=== PATIENT | female | born 1965 | race Caucasian/White ===

== ENCOUNTER 2017-11-15 17:42 | Emergency (ER) | payer OTHER ==
[2017-11-15] MEDS ORDERED: NALOXONE HCL INJ 2 MG/2 ML DISP.SYRIN ONE (17:59)
[2017-11-15 18:14] LABS: ABSOLUTE BASOPHILS # (AUTO) 0.1 10^3/uL (0.0-0.2); ABSOLUTE EOSINOPHILS # (AUTO) 0.1 10^3/uL (0.0-0.6); ABSOLUTE LYMPHOCYTES (AUTO) 1.9 10^3/uL (0.5-4.7); ABSOLUTE MONOCYTES (AUTO) 0.5 10^3/uL (0.1-1.4); ABSOLUTE NEUT (AUTO) 6.7 10^3/uL (1.7-8.2); BASOPHILS % (AUTO) 1.1 % (0-2); EOSINOPHILS % (AUTO) 1.1 % (0-6); HEMATOCRIT 40.4 % (36.0-47.0); HEMOGLOBIN 13.8 g/dL (12.0-15.5); LYMPHOCYTES % (AUTO) 20.1 % (13-45); MEAN CORPUSCULAR HEMOGLOBIN 30.6 pg (27.0-33.4); MEAN CORPUSCULAR HGB CONC 34.2 g/dL (32.0-36.0); MEAN CORPUSCULAR VOLUME 89 fl (80-97); MONOCYTES % (AUTO) 5.3 % (3-13); PLATELET COUNT 335 10^3/uL (150-450); RED BLOOD COUNT 4.52 10^6/uL (3.72-5.28); RED CELL DISTRIBUTION WIDTH 13.4 % (11.5-14.0); SEGMENTED NEUTROPHILS % (AUTO) 72.4 % (42-78); TOTAL CELLS COUNTED % (AUTO) 100 %; WHITE BLOOD COUNT 9.3 10^3/uL (4.0-10.5)
[2017-11-15 18:27] LABS: ALANINE AMINOTRANSFERASE 28 U/L (9-52); ALBUMIN 4.1 g/dL (3.5-5.0); ALKALINE PHOSPHATASE 92 U/L (38-126); ANION GAP 14 (5-19); ASPARTATE AMINO TRANSFERASE 20 U/L (14-36); BILIRUBIN,DIRECT 0.3 mg/dL (0.0-0.4); BILIRUBIN,TOTAL 0.3 mg/dL (0.2-1.3); BLOOD UREA NITROGEN 13 mg/dL (7-20); CALCIUM 9.6 mg/dL (8.4-10.2); CARBON DIOXIDE 24 mmol/L (22-30); CHLORIDE 106 mmol/L (98-107); GLUCOSE 100 mg/dL (75-110); POTASSIUM 3.8 mmol/L (3.6-5.0); SODIUM 143.5 mmol/L (137-145); TOTAL PROTEIN 7.3 g/dL (6.3-8.2)
[2017-11-15 18:38] LABS: ACETAMINOPHEN < 10 ug/mL (10-30); ALCOHOL < 10 mg/dL (NONE DETECTED); SALICYLATE < 1.0 mg/dL (2.0-20.0)
--- NOTE | 2017-11-15 18:42 | ER Document Report ---
ED General <GAMBLE,BRIAN - Last Filed: 11/16/17 01:09> - General Mode of Arrival: Ambulatory Information source: Relative - HPI Onset: Just prior to arrival Similar symptoms previously: No Recently seen / treated by doctor: No <DENNIS HUSSEIN - Last Filed: 11/16/17 01:17> - General Chief Complaint: Possible Overdose Stated Complaint: CONFUSION,WEAKNESS Time Seen by Provider: 11/15/17 17:53 Notes: 52-year-old female with reported history of hypertension, depression presents via private vehicle from home after her found her altered, slurring her speech and stumbling around the house. He reports that the patient has had increased stress with a mother who is ill. He does admit that they had an argument earlier today. He reports an empty bottle of Xanax but is unsure how many pills the patient initially had. He denies known history of previous suicide attempt. He does report a history of admission at [facility]. (DENNIS HUSSEIN) Past Medical History - General Information source: Relative Cannot obtain history due to: Altered mental status - Social History Smoking Status: Unknown if Ever Smoked Frequency of alcohol use: Occasional Drug Abuse: Prescription drugs Lives with: Spouse/Significant other Family History: Reviewed & Not Pertinent - Past Medical History Cardiac Medical History: Reports: Hx Hypertension Psychiatric Medical History: Reports: Hx Depression <HUSSEINDENNIS - Last Filed: 11/16/17 01:17> Review of Systems - Review of Systems -: Yes ROS unobtainable due to patient's medical condition <KEENANDENNIS Weaver - Last Filed: 11/16/17 01:17> Physical Exam <GAMBLEBHAVNATANGELA - Last Filed: 11/16/17 01:09> - Vital signs Interpretation: Normal. No: Hypertensive <DENNIS HUSSEIN - Last Filed: 11/16/17 01:17> - Vital signs Vitals: Pulse Ox 97 11/15/17 17:48 - Notes Notes: PHYSICAL EXAMINATION: GENERAL: Somnolent but arousable, well-nourished and in no acute distress. HEAD: Atraumatic, normocephalic. EYES: Pupils equal round and reactive to light, extraocular movements intact, conjunctiva are normal. ENT: Patient with good gag reflex. Nares patent, oropharynx clear without exudates. Moist mucous membranes. NECK: Normal range of motion, supple without lymphadenopathy LUNGS: Breath sounds clear to auscultation bilaterally and equal. No wheezes rales or rhonchi. HEART: Regular rate and rhythm without murmurs ABDOMEN: Soft, nontender, nondistended abdomen. No guarding, no rebound. No masses appreciated. Female : deferred Musculoskeletal: Normal range of motion, no pitting or edema. No cyanosis. NEUROLOGICAL: good tone, responds to name and stimuli. GCS 10. PSYCH: Somnolent but arousable with painful stimuli. SKIN: Warm, Dry, normal turgor, no rashes or lesions noted. (DENNIS HUSSEIN) Course - Laboratory Result Diagrams: 11/15/17 18:00 11/15/17 18:00 <TANGELA GAMBLE - Last Filed: 11/16/17 01:09> - Laboratory Result Diagrams: 11/15/17 18:00 11/15/17 18:00 <DENNIS HUSSEIN - Last Filed: 11/16/17 01:17> - Re-evaluation Re-evalutation: 11/15/17 18:45 52-year-old female presents from home altered. Per the patient was found slurring her words, stumbling around the house just prior to arrival. He denies the patient falling. He states he found her Xanax bottle empty. He is unsure when the prescription was filled or how many were in their earlier. He does admit that they argued earlier today and the patient has been experiencing increased stress with an ill mother. He denies any known history of previous suicide attempt. He does state that the patient has had previous psychiatric admission at [facility] for depression. Upon arrival patient is somnolent, arousable with verbal and tactile stimuli. Gag reflex intact. She is checking her airway, not hypoxic and has a normal respiratory rate. 2 mg of Narcan IV was administered with no response. IV fluids administered. IVC petition initiated. Poison control contacted and have no further recommendations except for IV fluids and monitoring. 11/15/17 19:51 Patient reevaluated she remains somnolent but arousable. VSS 11/15/17 21:11 Patient reevaluated and remains sleeping but arousable. Vital signs stable. has not returned with medication information. 11/15/17 21:12 11/15/17 21:46 Urinalysis positive for amphetamines and benzodiazepine. 11/16/17 01:14 Still unclear whether this was an intentional OD. Patient's never returned to ED. Patient will be medically cleared once she is able to provide history and is alert and awake. Patient to remain on monitor until improvement. Patient signed out to Dr Gamble with nothing pending just the need for continuous observation. (DENNIS HUSSEIN) - Vital Signs Vital signs: Temp Pulse Resp BP Pulse Ox 98.5 F 18 111/83 100 11/15/17 17:50 11/16/17 00:31 11/16/17 00:31 11/16/17 00:31 - Laboratory Laboratory results interpreted by me: 11/15/17 18:00 Est GFR ( Amer) 55 L Est GFR (Non-Af Amer) 46 L Salicylates < 1.0 L Acetaminophen < 10 L - EKG Interpretation by Me Additional EKG results interpreted by me: 11/16/17 01:09 EKG is reviewed and interpreted by me. EKG shows sinus rhythm with rate [address] segment elevation or depression. HI interval is prolonged. QRS duration QTc intervals are within normal range. (TANGELA GAMBLE) Discharge <TANGELA GAMBLE - Last Filed: 11/16/17 01:09> <DENNIS HUSSEIN - Last Filed: 11/16/17 01:17> - Discharge Clinical Impression: History of depression Altered mental status Qualifiers: Altered mental status type: somnolence Qualified Code(s): R40.0 - Somnolence Overdose Qualifiers: Encounter type: initial encounter Injury intent: undetermined intent Qualified Code(s): T50.904A - Poisoning by unspecified drugs, medicaments and biological substances, undetermined, initial encounter Condition: Fair Referrals: SOL MEHTA MD [Primary Care Provider] - Follow up as needed
[2017-11-15] MEDS ORDERED: NALOXONE HCL INJ 2 MG/2 ML DISP.SYRIN IV ONE (18:44)
[2017-11-15 20:39] LABS: APPEARANCE,URINE CLEAR; BILIRUBIN,URINE NEGATIVE (NEGATIVE); COLOR,URINE YELLOW; GLUCOSE, URINE NEGATIVE (NEGATIVE); KETONES,URINE NEGATIVE (NEGATIVE); LEUKOCYTE ESTERASE,URINE NEGATIVE (NEGATIVE); NITRITE,URINE NEGATIVE (NEGATIVE); PROTEIN,URINE NEGATIVE (NEGATIVE); URINE SPECIFIC GRAVITY 1.009; UROBILINOGEN,URINE NEGATIVE mg/dL (<2.0)
[2017-11-15 20:53] LABS: URINE AMPHETAMINES SCREEN UNCONFIRMED POSITIVE; URINE BARBITURATES SCREEN NEGATIVE; URINE BENZODIAZEPINES SCREEN UNCONFIRMED POSITIVE; URINE COCAINE SCREEN NEGATIVE; URINE MARIJUANA (THC) SCREEN NEGATIVE; URINE METHADONE SCREEN NEGATIVE; URINE PHENCYCLIDINE SCREEN NEGATIVE
--- NOTE | 2017-11-15 22:32 | EKG REPORT ---
SEVERITY:- BORDERLINE ECG - SINUS RHYTHM LEFT AXIS DEVIATION BORDERLINE R WAVE PROGRESSION, ANTERIOR LEADS BORDERLINE T ABNORMALITIES, ANT-LAT LEADS : Confirmed by: Beronica Julien 15-Nov-2017 22:31:26
[2017-11-15] MEDS ORDERED: NORMAL SALINE INJ/PF 0.9% 10 ML SDV IV ONE (23:06)
--- NOTE | 2017-11-16 07:38 | EKG REPORT ---
SEVERITY:- ABNORMAL ECG - SINUS RHYTHM FIRST DEGREE AV BLOCK LEFT AXIS DEVIATION BORDERLINE T ABNORMALITIES, DIFFUSE LEADS : Confirmed by: Mumtaz Arambula MD 16-Nov-2017 07:37:19
--- NOTE | 2017-11-16 10:11 | ER Document Report ---
Doctor's Note Notes: 11/16/17 10:10 This is a 52-year-old female with a history of depression with prior inpatient psychiatric care who was brought into the emergency room by her after she was found altered at home in the setting of possible overdose with benzodiazepines. Patient's vital signs have been stable. Patient's labs have been stable. On physical exam, the patient is still quite lethargic but arousable. Her lungs are clear and her heart is regular. She appears to have no focal weakness (she is moving all extremities). To me, she does still appear to have slurred speech. The patient is accompanied by her who is in the room and he says his speech is much better. By the 's accounts, he did find an old (from 2011) bottle of Xanax which was empty and out on the table (where it had not been previously out) when he had come home. He stated that the patient was slurring her speech at that time and that is when he brought her into the emergency room. I contacted [facility] and they have confirmed that the patient's medicines include Adderall 20, Abilify 5, Wellbutrin XL 300, and Prozac 20. The patient's tox screen was positive for benzodiazepines and amphetamines which is consistent with Xanax exposure as well as being on Adderall. At this point, we will continue to monitor. 11/16/17 10:24 11/16/17 19:18 Note: I discussed the case with the psychiatric team and we will continue to observe the patient for reevaluation tomorrow.
--- NOTE | 2017-11-16 13:12 | PSYCHOLOGICAL NOTE ---
Psych Note - Psych Note Psych Note: Reason for evaluation: Alleged overdose on Xanax Contact Permissions: Patient's Buck Martin cell phone [phone]; [phone] Patient is a 52-year-old female. Patient reports she intentionally took the bottle of Xanax. Patient reports she is matriarch of her family. Patient reports her dad 3 years ago. Patient reports her mother is sick right now and her sister cannot help because her sister had a stroke several years ago. Patient reports she was angry at her because he just stares out the window when there is problems and is not understanding what she is going through. Patient reports she sees Dr. Rosales and also a new therapist at [facility] and is getting treatment for posttraumatic stress disorder and anxiety. Patient reports she wants to go somewhere for a month to "get her mind right". Patient reports she took the Xanax but does not remember how many because there was a 60 day supply and she had been taking them whenever she had anxiety as needed. Patient reports she has 1 biological daughter with him and another daughter that he raised. Patient reports that she felt her family did not need her anymore. Patient reports she does a lot for people. Patient reports that her and her have been for 24 years. Collateral information: Patient's Buck Martin ( present in room) Patient's reports patient came downstairs and had slurred speech, so he went upstairs and found an empty bottle of Xanax on the bathroom countertop. Patient's reports patient has history of depression and was in a psychiatric inpatient facility 3 or 4 years ago for the depression. To the patient's knowledge patient has never attempted suicide and does not use Xanax recreationally. Patient's reports they have been for 24 years and patient disclosed to him that she "does not want to ". Patient' s reports patient has history of high blood pressure with history of confusion while experiencing high blood pressure. Patient's reports he believes she was not trying to intentionally hurt herself. Patient's reports they came to the emergency department yesterday at 630. Patient's reports he has a good social support system to her and is able to administer meds. Diagnosis: Per patient report 309.81 (F43.10) posttraumatic stress disorder Per patient report 300.00 (F41.9) anxiety disorder unspecified Impression/Plan: Recommendation to hold patient for 24 hours or until medically cleared and able to be reassessed. Clinician observed patient's speech is slurred, she takes long pauses due to the influence of the medications she took. Clinician observed at this time there is not enough information, mental health to reassess at a later time once patient is medically cleared. Attending physician in agreement with disposition and plan. Consulted with Dr. Argueta regarding the management and care of patient.
[2017-11-16] MEDS ORDERED: ACETAMINOPHEN 325 MG TABLET PO ONE (16:49)
--- NOTE | 2017-11-16 19:53 | RADIOLOGY REPORT (SQ) ---
EXAM DESCRIPTION: CT HEAD WITHOUT COMPLETED DATE/TIME: 11/16/2017 7:11 pm REASON FOR STUDY: lethargic COMPARISON: None. TECHNIQUE: Axial images acquired through the brain without intravenous contrast. Images reviewed wi th bone, brain and subdural windows. Additional sagittal and coronal reconstructions were generated. Images stored on PACS. All CT scanners at this facility use dose modulation, iterative reconstruction, and/or weight based d osing when appropriate to reduce radiation dose to as low as reasonably achievable (ALARA). [facility]: Dose Right [facility]: CareDose [facility]: Dose Right [facility]: Teradose 4D [facility]: Smart [employer] RADIATION DOSE: CT Rad equipment meets quality standard of care and radiation dose reduction techniq ues were employed. CTDIvol: 53.2 mGy. DLP: 1097 mGy-cm. mGy. LIMITATIONS: None. FINDINGS: VENTRICLES: Normal size and contour. CEREBRUM: No masses. No hemorrhage. No midline shift. No evidence for acute infarction. Normal gra y/white matter differentiation. No areas of low density in the white matter. CEREBELLUM: No masses. No hemorrhage. No alteration of density. No evidence for acute infarction. EXTRAAXIAL SPACES: No fluid collections. No masses. ORBITS AND GLOBE: No intra- or extraconal masses. Normal contour of globe without masses. CALVARIUM: No fracture. PARANASAL SINUSES: No fluid or mucosal thickening. SOFT TISSUES: No mass or hematoma. OTHER: No other significant finding. IMPRESSION: NORMAL BRAIN CT WITHOUT CONTRAST. EVIDENCE OF ACUTE STROKE: NO. COMMENT: Quality ID # [id number]: Final reports with documentation of one or more dose reduction techniques (e.g., Automated exposure control, adjustment of the mA and/or kV according to patient size, use of iterative reconstruction technique) TECHNICAL DOCUMENTATION: JOB ID: [id number] 1894[employer]- All Rights Reserved Reading location - IP/workstation name: [email or web address]
--- NOTE | 2017-11-17 08:47 | PSYCHOLOGICAL NOTE ---
Psych Note - Psych Note Psych Note: Reason for consult: Re-eval Alleged Overdose Contact Permissions: Patient's Buck Martin cell phone [phone]; [phone] Patient is a 52-year-old female. Patient reports she does not remember talking to me yesterday and telling me that she took the Xanax intentionally. Patient reports just before taking the Xanax she was standing in the doorway listening to her talk to his friend in the garage about his affair that he had with another woman. Patient reports the friend was also having an affair with another woman and both her and the friend were talking about their women and affairs as if it were funny, as if they did not care about how their wives would feel about it. Patient reports she then confronted him and stood in the garage telling him to continue talking about the affair and also confronted the friend. Patient reports her then became angry because she spoke to him that way in front of their friend who she has known for as long as she is known her (over 23 years). Patient reports her stated she had talked to him like a dog and went in the home and started breaking picture frames and throwing pictures of patients father whom and mother who is currently dying. Patient reports her said he did not want [employer] pictures in the home because she states she is white and her is black. Patient reports that her does not have a good relationship with his own family so he is not considerate of her relationship with her parents. Patient reports that her family were not accepting the interracial marriage, so there is some truth to the client member statement he made. Patient reports however in that situation he "flipped the script" and turned the conversation about his affair into a conversation about how her family were racist. Patient reports she has a lot of things that she is overwhelmed because her mother is dying, her daughter is addicted to heroin which she just found out about, and her was having an affair that they were trying to work to up until him talking about it like it was funny to his friend just before she took the bottle of Xanax. Patient reports she intentionally took the entire bottle of Xanax but is unsure how many pills were in their. Patient reports her likes to believe he is supportive but he is not. Patient reports her probably thinks it is all about him or would like to think it is about him but it is not just about him there are a lot of things going on. Clinician updated patient on treatment plan, when updating patient she stated she took 40,60,70 pills. Patient stated when she discharges she wants to be discharged to the care of her daughter Mirna. Patient reported her daughter is graduating on Mother's Day and she does not want to miss it. Patient reported her mother is stressful, so she would not be a good person to have in the home, she lives nearby. Patient reports her also stresses her so he will leave the home until she has had time to follow up with her provider/outpatient therapist. Collateral information: Patient's Buck Patient's reports he will leave the home when patient discharges tomorrow. Patient's reports their daughter Mirna will be the supportive person to discharge too who will monitor patient. Patient's reports he will throw away all medication, and safety plan in the home, to include removing access to medications/ anything dangerous in the home until patient receives additional assessment with her outpatient therapist provider. Patient's reports he is relieved the patient is not being sent to a psych hospital because he was worried about his missing their daughter's graduation on mother's day. Diagnosis: Per patient report 309.81 (F43.10) posttraumatic stress disorder Per patient report 300.00 (F41.9) anxiety disorder unspecified Medication recommendation made by contracted [facility] provider Dr. Martha MD includes: 1. Please begin Celexa 20 mg daily 2. Please begin BuSpar 5 mg twice a day 3.Please discontinue home meds Impression/Plan: Recommendation to hold patient overnight for continued observation. A medication recommendation was made by contracted psychiatric provider. Clinician observed patient is still having difficulty regarding speech , aeb paucity and speech slightly slurred, however she is able to recall the events leading up to her overdose of Xanax ( a benzodiazepine). Clinician observed patient disclosed intentionally overdosing, but will redirect the conversation when asked more information regarding taking the Xanax.Clinician observed patient is experiencing environmental stresses to include marital conflicts, familial stresses, and currently grieving as her mother is at risk of dying ( 90% heart blockage, not able to get surgery). Clinician observed patient displays future oriented thinking by planning on attending her daughter' s graduation, as well as spending time with her, and distancing herself from stresses ( e.g. mother and ). Attending physician in agreement with plan and disposition. Consulted with Dr. Argueta regarding the management and care of patient.
--- NOTE | 2017-11-17 10:13 | ER Document Report ---
Doctor's Note Notes: The patient had overdose of home medications. Apparently there are some home dynamics exacerbating her mental health status. We will start her on Celexa and BuSpar at this time. Mental health would like to hold her for an additional 24 hours. Patient is awake and alert at this time. Ate breakfast. Ambulate to the bathroom without difficulty. Vital signs have been reviewed and within normal limits at this time. is at the bedside. Course - Re-evaluation Re-evalutation: 11/17/17 10:23 Laboratory 11/15/17 11/15/17 11/15/17 18:00 18:00 18:01 WBC 9.3 RBC 4.52 Hgb 13.8 Hct 40.4 MCV 89 MCH 30.6 MCHC 34.2 RDW 13.4 Plt Count 335 Seg Neutrophils % 72.4 Lymphocytes % 20.1 Monocytes % 5.3 Eosinophils % 1.1 Basophils % 1.1 Absolute Neutrophils 6.7 Absolute Lymphocytes 1.9 Absolute Monocytes 0.5 Absolute Eosinophils 0.1 Absolute Basophils 0.1 Sodium 143.5 Potassium 3.8 Chloride 106 Carbon Dioxide 24 Anion Gap 14 BUN 13 Creatinine 1.24 Est GFR ( Amer) 55 L Est GFR (Non-Af Amer) 46 L Glucose 100 POC Glucose 89 Calcium 9.6 Total Bilirubin 0.3 Direct Bilirubin 0.3 Neonat Total Bilirubin Not Reportable Neonat Direct Bilirubin Not Reportable Neonat Indirect Bili Not Reportable AST 20 ALT 28 Alkaline Phosphatase 92 Total Protein 7.3 Albumin 4.1 Urine Color Urine Appearance Urine pH Ur Specific [place] Urine Protein Urine Glucose (UA) Urine Ketones Urine Blood Urine Nitrite Urine Bilirubin Urine Urobilinogen Ur Leukocyte Esterase Urine WBC (Auto) Urine RBC (Auto) U Hyaline Cast (Auto) Squamous Epi Cells Auto Urine Mucus (Auto) Urine Ascorbic Acid Salicylates < 1.0 L Urine Opiates Screen Urine Methadone Screen Acetaminophen < 10 L Ur Barbiturates Screen Ur Phencyclidine Scrn Ur Amphetamines Screen U Benzodiazepines Scrn Urine Cocaine Screen U Marijuana (THC) Screen Serum Alcohol < 10 11/15/17 11/15/17 11/16/17 20:26 20:26 01:04 WBC RBC Hgb Hct MCV MCH MCHC RDW Plt Count Seg Neutrophils % Lymphocytes % Monocytes % Eosinophils % Basophils % Absolute Neutrophils Absolute Lymphocytes Absolute Monocytes Absolute Eosinophils Absolute Basophils Sodium Potassium Chloride Carbon Dioxide Anion Gap BUN Creatinine Est GFR ( Amer) Est GFR (Non-Af Amer) Glucose POC Glucose Calcium Total Bilirubin Direct Bilirubin Neonat Total Bilirubin Neonat Direct Bilirubin Neonat Indirect Bili AST ALT Alkaline Phosphatase Total Protein Albumin Urine Color YELLOW Urine Appearance CLEAR Urine pH 5.0 Ur Specific [place] 1.009 Urine Protein NEGATIVE Urine Glucose (UA) NEGATIVE Urine Ketones NEGATIVE Urine Blood NEGATIVE Urine Nitrite NEGATIVE Urine Bilirubin NEGATIVE Urine Urobilinogen NEGATIVE Ur Leukocyte Esterase NEGATIVE Urine WBC (Auto) 0 Urine RBC (Auto) 0 U Hyaline Cast (Auto) 1 Squamous Epi Cells Auto <1 Urine Mucus (Auto) RARE Urine Ascorbic Acid NEGATIVE Salicylates Urine Opiates Screen NEGATIVE Urine Methadone Screen NEGATIVE Acetaminophen < 10 L Ur Barbiturates Screen NEGATIVE Ur Phencyclidine Scrn NEGATIVE Ur Amphetamines Screen UNCONFIRMED POSITIVE U Benzodiazepines Scrn UNCONFIRMED POSITIVE Urine Cocaine Screen NEGATIVE U Marijuana (THC) Screen NEGATIVE Serum Alcohol Head CT 11/16/17 18:12 IMPRESSION: NORMAL BRAIN CT WITHOUT CONTRAST. EVIDENCE OF ACUTE STROKE: NO. - Vital Signs Vital signs: Temp Pulse Resp BP Pulse Ox 98.0 F 17 112/75 98 11/17/17 06:10 11/17/17 07:00 11/17/17 07:01 11/17/17 07:01 - Laboratory Result Diagrams: 11/15/17 18:00 11/15/17 18:00 Laboratory results interpreted by me: 11/15/17 11/16/17 18:00 01:04 Est GFR ( Amer) 55 L Est GFR (Non-Af Amer) 46 L Salicylates < 1.0 L Acetaminophen < 10 L < 10 L
[2017-11-17] MEDS ORDERED: BUSPIRONE HCL 10 MG TABLET PO SCH (11:00)
[2017-11-17] MEDS ORDERED: CITALOPRAM HYDROBROMIDE 20 MG TABLET PO SCH (11:00)
--- NOTE | 2017-11-18 09:05 | ER Document Report ---
Doctor's Note Notes: 11/18/17 09:05 I have evaluated this patient this am and has no c/o at this time. Feels all of their needs are being met and physical exam is normal. Awaiting dispositon per mental health. She denies SI or HI. 11/18/17 12:00 Mental Health evaluated patient and is recommending discharge with outpatient follow-up. They are recommending Celexa 20 mg daily and BuSpar 5 mg twice daily. Seven-day prescription was provided until she is able to follow-up at counseling tomorrow at 1500. He will also follow-up at [facility].
[2017-11-18] MEDS ORDERED: BUSPIRONE HCL 10 MG TABLET PO SCH (10:00)
[2017-11-18] MEDS ORDERED: CITALOPRAM HYDROBROMIDE 20 MG TABLET PO SCH (10:00)
[2017-11-18 12:17] VITALS: BP 126/80
--- NOTE | 2017-11-18 18:16 | PSYCHOLOGICAL NOTE ---
Psych Note - Psych Note Psych Note: Reason for referral: 2nd Re-Evaluation, Intentional overdose Contact Permission: Buck Martin cell phone [phone] or alternative [phone] Daughter Mirna [phone] Patient is a 52 year old female who presented to the [facility] ED on the evening of for an intentional OD of Xanax. She has had an initial consult by the [facility] team and today makes the second re-evaluation. She denied any thoughts of wanting to hurt/harm/kill self currently. She continued to have future oriented thinking as evidenced by wanting to attend her daughter's college graduation this coming Thursday with patient's mother. She stated her daughter is in [place] until after Thursday's graduation. She confirmed that she felt her was disrespectful to her the other day which sent her off, however she had already been stressed with her mother's declining health and her other daughter's drug addiction. She reported "my is a trigger but it has been better the past year because I put boundaries in place and expectations." She described herself as "up front and outspoken." She further commented that she "typically does not get angry because that gets you nowhere. " She stated "I don't want to cry," proceeded to identify her stressors and did get tearful (appropriate). She stated she thinks her second therapy appointment at [facility] is 12/08/2017. She acknowledged frustration with trying to get therapy at [facility] and was open to getting an appointment for therapy elsewhere. She reported she was not sure when her next medication management appointment was. Patient was alert and oriented to person, place, time and situation. Mood was depressed with congruent affect AEB tearful though at appropriate time. Note the depressed mood may still be lethargy from Xanax OD. She did not appear to be responding to internal stimuli as evidenced by good eye contact, answering questions appropriately when addressed, staying on topic and having dialogue conversation. Thought processes seemed slower in nature but linear and organized. Conversational speech was soft in tone and within normal limits for rate and prosody. Intellectual abilities are estimated to be average. Insight, judgment and impulse control are fair as evidenced by interest in wanting therapy regularly. Diagnosis: 309.81 (F43.10) Posttraumatic Stress Disorder by history per patient report 300.00 (F41.9) Unspecified Anxiety Disorder by history per patient report Impression/Plan: Patient is psychiatrically cleared (acutely). Patient had only been on 24 hour Petition/Affidavit from 11/15/17 which had already . She denied current SI. She had future oriented thinking (not wanting to miss daughter's college graduation 11/22/17). She mentioned difficulty with therapy at [facility] and wanted other referral. Made a therapy appointment at [facility] for tomorrow (11/19/17) at 1500. Encouraged patient to follow up with [facility] for medication management within 3-5 days and mentioned as an active client she can do a walk in. to have control over new medications and administration. He confirmed he removed all old medication from the home. Daughter said she could come home since done with exams and not needing to do graduation stuff until Thursday. confirmed this. Patient provided with outpatient resource sheet which documented appointment dates and times (for [facility] noted to do a walk in myriam), as well as highlighted MCM number. Consulted with Dr. Argueta regarding the management and care of patient. Medication recommendations made by the psychiatric medical provider, Dr. Martha CHAVEZ, include: scripts for medications administered in ED Celexa 20MG daily for depression and anxiety Buspar 5MG twice a day for depression and anxiety
== END 2017-11-18 12:36 | disposition home or self-care (01) ==
LOC: ER 17:42 → EDBD 17:42 → ER 11-18 12:36
DX: T50.904A Poisoning by unspecified drugs, medicaments and biological substances, undetermined, initial encounter (principal); X58.XXXA Exposure to other specified factors, initial encounter; Y92.009 Unspecified place in unspecified non-institutional (private) residence as the place of occurrence of the external cause; R40.0 Somnolence; F43.10 Post-traumatic stress disorder, unspecified; F41.9 Anxiety disorder, unspecified; I10 Essential (primary) hypertension
CPT/HCPCS: 93005 ×2; 99285; 51701; 96374; 36415; 82962; 80307 ×4; 85025; 80053; 81001; 70450; 93010 ×2; J3490; J2310

== ENCOUNTER 2018-02-06 17:24 | Emergency (ER) | payer OTHER ==
[2018-02-06] MEDS ORDERED: ASPIRIN 81 MG TABLET, CHEWABLE PO ONE (18:48)
--- NOTE | 2018-02-06 18:50 | ER Document Report ---
ED Medical Screen (RME) - General Chief Complaint: Chest Pain Stated Complaint: CHEST PAIN, ARM NUMBNESS Time Seen by Provider: 02/06/18 18:47 Mode of Arrival: Ambulatory Information source: Patient Notes: This is a 52-year-old female with a history of hypertension, migraines, GERD, bladder spasms, anxiety. She presents to the emergency room with an episode of chest pain while fishing. [place] the [place] and had rods and pulse and was walking between 2 rods when he started having left-sided chest pain with left arm weakness. Patient states the pain seemed to migrate to the right side of the chest and was squeezing. Patient states it was associated with nausea and diaphoresis. Patient denies shortness of breath. Medications: Lisinopril-hydrochlorothiazide Topamax Wellbutrin Omeprazole Gabapentin "Medicine for bladder spasms". Allergies: None TRAVEL OUTSIDE OF THE [place] IN LAST 30 DAYS: No - Related Data Allergies/Adverse Reactions: No Known Allergies Allergy (Verified 02/06/18 17:24) Past Medical History - Social History Chew tobacco use (# tins/day): No Frequency of alcohol use: None Drug Abuse: None - Past Medical History Cardiac Medical History: Reports: Hx Hypertension Denies: Hx Coronary Artery Disease, Hx Heart Attack Pulmonary Medical History: Denies: Hx Asthma, Hx Bronchitis, Hx COPD, Hx Pneumonia Neurological Medical History: Denies: Hx Cerebrovascular Accident, Hx Seizures Renal/ Medical History: Denies: Hx Peritoneal Dialysis GI Medical History: Reports: Hx Gastroesophageal Reflux Disease Musculoskeltal Medical History: Denies Hx Arthritis Psychiatric Medical History: Reports: Hx Anxiety, Hx Depression Past Surgical History: Reports: Hx Appendectomy, Hx Hysterectomy, Hx Tubal Ligation - Immunizations Immunizations up to date: No Hx Diphtheria, Pertussis, Tetanus Vaccination: Yes Physical Exam - Vital signs Vitals: Temp Pulse Resp BP Pulse Ox 98.2 F 92 24 H 135/90 H 99 02/06/18 17:45 02/06/18 17:45 02/06/18 17:45 02/06/18 17:45 02/06/18 17:45 Course - Vital Signs Vital signs: Temp Pulse Resp BP Pulse Ox 98.2 F 92 24 H 135/90 H 99 02/06/18 17:45 02/06/18 17:45 02/06/18 17:45 02/06/18 17:45 02/06/18 17:45
--- NOTE | 2018-02-06 19:12 | RADIOLOGY REPORT (SQ) ---
EXAM DESCRIPTION: CHEST SINGLE VIEW COMPLETED DATE/TIME: 02/06/2018 7:01 pm REASON FOR STUDY: cp COMPARISON: 02/14/2016 EXAM PARAMETERS: NUMBER OF VIEWS: One view. TECHNIQUE: Single frontal radiographic view of the chest acquired. RADIATION DOSE: NA LIMITATIONS: None. FINDINGS: LUNGS AND PLEURA: No opacities, masses or pneumothorax. No pleural effusion. MEDIASTINUM AND HILAR STRUCTURES: No masses. Contour normal. HEART AND VASCULAR STRUCTURES: Heart normal in size. Normal vasculature. BONES: No acute findings. HARDWARE: None in the chest. OTHER: No other significant finding. IMPRESSION: NO ACUTE RADIOGRAPHIC FINDING IN THE CHEST. TECHNICAL DOCUMENTATION: JOB ID: [id number] [place]-72 2010 [employer]- All Rights Reserved Reading location - IP/workstation name: [employer]
[2018-02-06 19:43] LABS: ALANINE AMINOTRANSFERASE 41 U/L (9-52); ALBUMIN 4.1 g/dL (3.5-5.0); ALKALINE PHOSPHATASE 102 U/L (38-126); ANION GAP 14 (5-19); ASPARTATE AMINO TRANSFERASE 32 U/L (14-36); BILIRUBIN,DIRECT 0.2 mg/dL (0.0-0.4); BILIRUBIN,TOTAL 0.9 mg/dL (0.2-1.3); BLOOD UREA NITROGEN 16 mg/dL (7-20); CARBON DIOXIDE 21 mmol/L (22-30); CHLORIDE 106 mmol/L (98-107); CREATINE KINASE 541 U/L (30-135); GLUCOSE 92 mg/dL (75-110); POTASSIUM 3.4 mmol/L (3.6-5.0); SODIUM 141.1 mmol/L (137-145); TOTAL PROTEIN 7.3 g/dL (6.3-8.2)
[2018-02-06 19:49] LABS: ABSOLUTE BASOPHILS # (AUTO) 0.1 10^3/uL (0.0-0.2); ABSOLUTE EOSINOPHILS # (AUTO) 0.2 10^3/uL (0.0-0.6); ABSOLUTE LYMPHOCYTES (AUTO) 2.2 10^3/uL (0.5-4.7); ABSOLUTE MONOCYTES (AUTO) 0.5 10^3/uL (0.1-1.4); ABSOLUTE NEUT (AUTO) 5.4 10^3/uL (1.7-8.2); BASOPHILS % (AUTO) 0.8 % (0-2); EOSINOPHILS % (AUTO) 1.9 % (0-6); HEMOGLOBIN 13.5 g/dL (12.0-15.5); LYMPHOCYTES % (AUTO) 26.6 % (13-45); MEAN CORPUSCULAR HEMOGLOBIN 30.1 pg (27.0-33.4); MEAN CORPUSCULAR HGB CONC 33.8 g/dL (32.0-36.0); MEAN CORPUSCULAR VOLUME 89 fl (80-97); PLATELET COUNT 287 10^3/uL (150-450); RED BLOOD COUNT 4.48 10^6/uL (3.72-5.28); RED CELL DISTRIBUTION WIDTH 13.6 % (11.5-14.0); SEGMENTED NEUTROPHILS % (AUTO) 64.7 % (42-78); TOTAL CELLS COUNTED % (AUTO) 100 %; WHITE BLOOD COUNT 8.3 10^3/uL (4.0-10.5)
[2018-02-06 19:55] LABS: CREATINE KINASE MB 3.18 ng/mL (<4.55)
[2018-02-06 19:57] LABS: TROPONIN I < 0.012 ng/mL
[2018-02-06] MEDS ORDERED: NORMAL SALINE 1000 ML 1,000 ML IV ONE (21:31)
--- NOTE | 2018-02-06 21:47 | ER Document Report ---
ED Cardiac - General Chief Complaint: Chest Pain Stated Complaint: CHEST PAIN, ARM NUMBNESS Time Seen by Provider: 02/06/18 18:47 Mode of Arrival: Ambulatory Information source: Patient Notes: Patient is a 52-year-old female who presents with chief complaint of chest pain. Patient reports of chest pain started at 4 PM while she was out fishing. Describes the pain as being on the left side of her chest with radiation down the left arm. Patient had associated dizziness and nausea. Denies any shortness of breath or diaphoresis. Patient reports history of hypertension, depression, denies history of any myocardial infarction. Patient is a non- smoker. TRAVEL OUTSIDE OF THE [place] IN LAST 30 DAYS: No - Related Data Allergies/Adverse Reactions: No Known Allergies Allergy (Verified 02/06/18 17:24) Past Medical History - General Information source: Patient - Social History Smoking Status: Current Every Day Smoker Chew tobacco use (# tins/day): No Frequency of alcohol use: None Drug Abuse: None Family History: Reviewed & Not Pertinent Patient has suicidal ideation: No Patient has homicidal ideation: No - Past Medical History Cardiac Medical History: Reports: Hx Hypertension Denies: Hx Coronary Artery Disease, Hx Heart Attack Pulmonary Medical History: Denies: Hx Asthma, Hx Bronchitis, Hx COPD, Hx Pneumonia Neurological Medical History: Denies: Hx Cerebrovascular Accident, Hx Seizures Renal/ Medical History: Denies: Hx Peritoneal Dialysis GI Medical History: Reports: Hx Gastroesophageal Reflux Disease Musculoskeletal Medical History: Denies Hx Arthritis Psychiatric Medical History: Reports: Hx Anxiety, Hx Depression Past Surgical History: Reports: Hx Appendectomy, Hx Hysterectomy, Hx Tubal Ligation - Immunizations Immunizations up to date: No Hx Diphtheria, Pertussis, Tetanus Vaccination: Yes Physical Exam - Vital signs Vitals: Temp Pulse Resp BP Pulse Ox 98.2 F 92 24 H 135/90 H 99 02/06/18 17:45 02/06/18 17:45 02/06/18 17:45 02/06/18 17:45 02/06/18 17:45 Course - Re-evaluation Re-evalutation: 02/06/18 21:50 On my initial evaluation, patient reports that her chest left-sided chest pain has completely resolved. She currently has some mild discomfort to the right side of her chest. Nonradiating. Patient reports that the pain feels like a heaviness. Patient is also reporting that both of her legs are swollen. She reports this happens from time to time. Mild swelling is noting however it is non-pitting. Will add on a BNP. Of note patient with normal CBC. CMP reveals a potassium 3.4, CO2 of 21. BUN is 16 creatinine is mildly elevated at 1.3, CK is 541. CK-MB is 3.10. Troponin is less than 0.012. Will add on 1 L normal saline bolus. Patient updated on plan of care and is agreeable to same. Vital signs are stable. Delta troponin is within normal limits. Patient remains chest pain-free. Patient will be discharged home in stable condition. Patient encouraged to return to the emergency department if she develops worsening chest pain, shortness of breath or any other symptom that is concerning to her. Patient will follow up with her primary care doctor. Patient also encouraged to increase her water intake. - Vital Signs Vital signs: Temp Pulse Resp BP Pulse Ox 98.2 F 92 19 111/75 100 02/06/18 17:45 02/06/18 17:45 02/07/18 00:01 02/07/18 00:00 02/07/18 00:01 - Laboratory Result Diagrams: 02/06/18 19:15 02/06/18 19:15 Laboratory results interpreted by me: 02/06/18 19:15 Potassium 3.4 L Carbon Dioxide 21 L Creatinine 1.30 H Est GFR ( Amer) 52 L Est GFR (Non-Af Amer) 43 L Creatine Kinase 541 H Discharge - Discharge Clinical Impression: Chest wall pain Condition: Stable Disposition: HOME, SELF-CARE Additional Instructions: Chest Wall Pain Your chest pain has been diagnosed as coming from the chest wall. This is often caused by straining the muscles or joints in the chest during physical activity, direct trauma, coughing, or vigorous vomiting. Persons with arthritis are especially prone to this type of pain, due to inflammation of the cartilage joints near the breast bone. Occasionally, no cause can be found. Rest from strenuous physical activity. This kind of chest pain is usually made worse by movement of the chest. Depending on the symptoms, we may prescribe medicine for pain, muscle relaxation, and antiinflammatory effects. If the pain is new, and seems to be due to muscle strain, cold packs can help. Otherwise, apply gentle warmth to the painful area for 15 minutes every hour or two. You should contact the doctor immediately if things change. Further evaluation is needed if you develop a fever or cough, if the nature of the pain changes, or if you become short of breath. Dehydration Dehydration can result from vomiting or diarrhea, fever, or decreased intake of fluids. If severe, hospitalization and intravenous fluids may be required. Most cases are treated at home with fluids by mouth. For the next 24 hours, drink lots of clear fluids. In mild cases, this can be soda pop or sports drinks. For more severe dehydration, the doctor may recommend special fluids such as Pedialyte or Lytren. Try to get three liters ( 3 quarts) of fluid per day. If vomiting occurs, continue to drink the fluids frequently (every 15 to 20 minutes), but in small amounts (one or two ounces). Depending on the type of dehydration, the doctor may prescribe antinausea medicine or potassium replacements. Call the doctor or return for re-examination if you become progressively weak, vomit repeatedly, or have other new symptoms. Your cardiac workup today was negative. As discussed, you need to keep up with your oral hydration. Please return to the emergency department if you develop any worsening symptoms, new chest pain, shortness of breath or any other symptom that is concerning to you. Please follow-up with her primary care doctor in the next 3-5 days for a recheck.
[2018-02-07 00:42] VITALS: BP 111/75
--- NOTE | 2018-02-07 03:07 | EKG REPORT ---
SEVERITY:- BORDERLINE ECG - SINUS RHYTHM BORDERLINE LEFT AXIS DEVIATION BORDERLINE T ABNORMALITIES, ANTERIOR LEADS BORDERLINE PROLONGED QT INTERVAL : Confirmed by: Shanna Rodriguez MD 07-Feb-2018 03:06:38
== END 2018-02-07 00:55 | disposition home or self-care (01) ==
LOC: ER 17:24
DX: R07.89 Other chest pain (principal); R42 Dizziness and giddiness; R11.0 Nausea; I10 Essential (primary) hypertension; M79.89 Other specified soft tissue disorders
CPT/HCPCS: 93005; 99285; 96360; 96361; 36415; 82553; 82550; 85025; 80053; 84484; 83880; 71045; 93010; J7030

== ENCOUNTER 2019-11-18 15:42 | Emergency (ER) | payer OTHER, BC ==
[2019-11-18] MEDS ORDERED: ASPIRIN 81 MG TABLET, CHEWABLE PO ONE (15:54)
--- NOTE | 2019-11-18 16:00 | ER Document Report ---
ED Medical Screen (RME) - General Stated Complaint: CHEST PAIN Time Seen by Provider: 11/18/19 15:50 Mode of Arrival: Ambulatory Information source: Patient Notes: This 54-year-old female with history of high blood pressure anxiety and depression presents to the emergency department at first telling us she was having chest pain. She changed her story and admitted she had taken 18 10 mg oxycodone at approximately 1300 today. She reports she was not trying to commit suicide she was just tired and wanted to rest. She complains of some nausea at this time. Reports she feels a little drunk at this time. Reports she has taken pills in the past but never tried to commit suicide. Denies history of substance abuse. No other complaint such as fever nausea vomiting diarrhea. I have greeted and performed a rapid initial assessment of this patient. A comprehensive ED assessment and evaluation of the patient, analysis of test results and completion of the medical decision making process will be conducted by additional ED providers. TRAVEL OUTSIDE OF THE [place] IN LAST 30 DAYS: No - Related Data Allergies/Adverse Reactions: No Known Allergies Allergy (Verified 02/06/18 17:24) Past Medical History - Past Medical History Cardiac Medical History: Reports: Hx Hypertension Denies: Hx Coronary Artery Disease, Hx Heart Attack Pulmonary Medical History: Denies: Hx Asthma, Hx Bronchitis, Hx COPD, Hx Pneumonia Neurological Medical History: Denies: Hx Cerebrovascular Accident, Hx Seizures Renal/ Medical History: Denies: Hx Peritoneal Dialysis GI Medical History: Reports: Hx Gastroesophageal Reflux Disease Musculoskeltal Medical History: Denies Hx Arthritis Psychiatric Medical History: Reports: Hx Anxiety, Hx Depression Past Surgical History: Reports: Hx Appendectomy, Hx Hysterectomy, Hx Tubal Ligation - Immunizations Immunizations up to date: No Hx Diphtheria, Pertussis, Tetanus Vaccination: Yes
[2019-11-18 17:08] LABS: APPEARANCE,URINE CLEAR; BILIRUBIN,URINE NEGATIVE (NEGATIVE); COLOR,URINE YELLOW; GLUCOSE, URINE NEGATIVE (NEGATIVE); KETONES,URINE NEGATIVE (NEGATIVE); LEUKOCYTE ESTERASE,URINE NEGATIVE (NEGATIVE); NITRITE,URINE NEGATIVE (NEGATIVE); PROTEIN,URINE NEGATIVE (NEGATIVE); URINE SPECIFIC GRAVITY 1.019; UROBILINOGEN,URINE NEGATIVE mg/dL (<2.0)
[2019-11-18 17:25] LABS: URINE BARBITURATES SCREEN NEGATIVE; URINE BENZODIAZEPINES SCREEN NEGATIVE; URINE COCAINE SCREEN NEGATIVE; URINE MARIJUANA (THC) SCREEN NEGATIVE; URINE METHADONE SCREEN NEGATIVE; URINE PHENCYCLIDINE SCREEN NEGATIVE
[2019-11-18 17:27] LABS: URINE AMPHETAMINES SCREEN UNCONFIRMED POSITIVE
[2019-11-18 17:56] LABS: ABSOLUTE BASOPHILS # (AUTO) 0.1 10^3/uL (0.0-0.2); ABSOLUTE EOSINOPHILS # (AUTO) 0.1 10^3/uL (0.0-0.6); ABSOLUTE LYMPHOCYTES (AUTO) 1.7 10^3/uL (0.5-4.7); ABSOLUTE MONOCYTES (AUTO) 0.5 10^3/uL (0.1-1.4); ABSOLUTE NEUT (AUTO) 6.6 10^3/uL (1.7-8.2); EOSINOPHILS % (AUTO) 0.6 % (0-6); HEMATOCRIT 41.6 % (36.0-47.0); HEMOGLOBIN 14.2 g/dL (12.0-15.5); LYMPHOCYTES % (AUTO) 19.6 % (13-45); MEAN CORPUSCULAR HEMOGLOBIN 30.8 pg (27.0-33.4); MEAN CORPUSCULAR HGB CONC 34.1 g/dL (32.0-36.0); MEAN CORPUSCULAR VOLUME 90 fl (80-97); MONOCYTES % (AUTO) 5.1 % (3-13); PLATELET COUNT 314 10^3/uL (150-450); RED BLOOD COUNT 4.61 10^6/uL (3.72-5.28); RED CELL DISTRIBUTION WIDTH 13.7 % (11.5-14.0); SEGMENTED NEUTROPHILS % (AUTO) 73.7 % (42-78); TOTAL CELLS COUNTED % (AUTO) 100 %; WHITE BLOOD COUNT 8.9 10^3/uL (4.0-10.5)
[2019-11-18 18:20] LABS: ACETAMINOPHEN < 10 ug/mL (10-30); ALBUMIN 4.2 g/dL (3.5-5.0); ALCOHOL < 10 mg/dL (NONE DETECTED); ALKALINE PHOSPHATASE 88 U/L (38-126); ANION GAP 9 (5-19); ASPARTATE AMINO TRANSFERASE 25 U/L (14-36); BILIRUBIN,TOTAL 0.6 mg/dL (0.2-1.3); BLOOD UREA NITROGEN 13 mg/dL (7-20); CARBON DIOXIDE 23 mmol/L (22-30); CHLORIDE 104 mmol/L (98-107); GLUCOSE 113 mg/dL (75-110); POTASSIUM 3.7 mmol/L (3.6-5.0); SALICYLATE < 1.0 mg/dL (2.0-20.0); TOTAL PROTEIN 7.8 g/dL (6.3-8.2)
--- NOTE | 2019-11-18 19:23 | PSYCHOLOGICAL NOTE ---
Psych Note - Psych Note Date seen by psych provider: 11/18/19 Time seen by psych provider: 17:75 - [id number] Psych Note: Presenting Problem: Patient is a 54 year old female who presented to the [facility] ED today via privately owned vehicle operated by her daughter for intentional overdose of 18 oxycodone to sleep. Patient identified she told her daughter she took a bunch of medication to sleep, asked her to get her some food and then watch her sleep but daughter said she was taking mother to the hospital or calling . Patient admitted she took about eighteen 10MG oxycodone. She reported "it started with I had pain in my foot, but I have a lot of stuff going on, I was tired, I wanted to rest and I haven't been sleeping well." Patient commented "I didn't actually count out the pills, I took some, thought I was getting sleepy, then 10 minutes later nothing so took some more and before I knew it I'd taken them all." Patient was adamant she just wanted to sleep. She denied wanting to sleep and not wake up. Patient stated "I don't want to , I have 2 kids that are amazing, I have a grand baby on the way in December, sometimes I just get a little overwhelmed." She reported the oxycodone was and old prescription of hers. 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 Patient stated balancing taking care of her mother, working and making time for her has been difficult. Patient further stated "there has been increased stress since COVID, work stopped which was my normalcy, then I was able to do telework but that still left me home and interacting with my more than usual, and my 's way of helping his family is sending them money so seeing me taking care of my mother has made him angry and yell at me more for whatever reason." Patient denied current suicidal ideation as well as ever having any thoughts of it when she took medications today. She did state "I just can't get a break anywhere and am exhausted." Patient identified 1.5 years ago she was in the [facility] ED for 3 days for a similar situation. She stated "I was sleeping and not coherent when my brought me in." She admitted to previous hospitalization at [facility] in 2004 "when my stuff started, I overdosed on Ambien, that was an actual suicide attempt." Patient further stated at the time of the Ambien Overdose "I had a moment of clarity, thought what did I do, made myself throw up and called ." Patient reported she had been seeing Fabio Berger at [facility] for medication management for awhile, saw him telepsych a couple weeks ago, there were no medication changes."She reported medication of: Effexor, Wellbutrin, Abilify and Adderall. Patient stated she sees Dr. Mora at [facility] for therapy every 3 weeks the past 1.5 years. Patient further reported she spoke to her new PCM at [place] about needing to talk with someone more regularly. Patient acknowledged she was in the [employer], got out in 1996 and said she was diagnosed with PTSD. Patient was alert and oriented to self, person, place, time and situation. Mood was depressed with flat affect which may be related to sedation/somnolence from overdose. She denied current SI/HI, admitted to similar situation 1.5 years ago with an overdose to just sleep and acknowledged an actual suicide attempt via overdose of Ambien in 2004. Patient did not appear to be responding to internal stimuli as evidenced by fair eye contact (note patient had puffy eyelids top and bottom, eyelids were heavy but she was able to keep them open) and answering questions appropriately when addressed. Conversational speech was somewhat slurred yet understandable. Thought processes were fairly linear with some tangential tendencies but was able to be redirected quickly. Intellectual abilities are estimated to be average. Insight, judgment and impulse control were poor as evidenced by taking eighteen 10MG oxycodone to sleep. Collateral: From [id number] obtained collateral from patient's daughter Mirna ([phone]). Patient gave verbal consent to keep daughter informed of plan of care and provided contact information. Daughter identified patient texted her she wanted her (daughter) there for her (patient), was up front about taking the medication and did want daughter to watch her but listened when daughter said they were going to hospital or calling . She denied patient making any comments/statements and there were no signs. She further noted patient has struggled in the past with mental health and things like that and she knows signs which she did not see. Daughter also mentioned stress surrounding grandmother recently diagnosed with Leukemia and mother being care professional, problems at home with her (something happened today to trigger but she did not know what), problems with her other daughter and everything building up. Daughter stated "she tries to get away form everything by sleeping and sleeps a lot so I think she truly was just trying to sleep it off." Daughter confirmed her sister is having patient's first grand baby which patient is excited about. Interventions: Used open ended questioning to obtain information regarding current crisis situation and past, as well as to get patient to elaborate. Medication recommendations: None at this time due to overdose Impression/Plan: Recommendation to for 24 Hour Petition for Evaluation. Patient admitted to taking eighteen 10MG oxycodone, some at first, they didn't make her sleep, so ten minutes more and before she knew it she took them all. Patient admitted to a previous similar incident 1.5 years ago where she was in [facility] ED for 3 days. She also admitted to an actual overdose of Ambien which was a suicide attempt in 2004 and resulted in hospitalization at [facility]. Patient noted medication management via [facility] with appointment 2 weeks ago and no changes to medication, as well as therapy at [facility] but not happening due to COVID. Patient is somnolent from overdose. Will monitor and re evaluate tomorrow. Consulted with Dr. Argueta regarding the management and care of patient. ED Physician in agreement with recommendations.
--- NOTE | 2019-11-18 21:38 | EKG REPORT ---
SEVERITY:- ABNORMAL ECG - SINUS RHYTHM FIRST DEGREE AV BLOCK BORDERLINE LEFT AXIS DEVIATION BORDERLINE R WAVE PROGRESSION, ANTERIOR LEADS BORDERLINE T ABNORMALITIES, DIFFUSE LEADS : Confirmed by: Mumtaz Arambula MD 18-Nov-2019 21:38:05
[2019-11-18] MEDS ORDERED: ONDANSETRON HCL INJ/PF 4 MG/2 ML SDV IV ONE (21:51)
--- NOTE | 2019-11-19 01:34 | ER Document Report ---
Entered by ABIGAIL HESS SCRIBE 11/18/19 1803 Acting as scribe for:HAYDE BIRCH DO ED General - General Chief Complaint: Overdose Stated Complaint: CHEST PAIN Time Seen by Provider: 11/18/19 15:50 [facility] - Follow up as needed Mode of Arrival: Ambulatory Information source: Patient Notes: This 54 year old female patient presents to the emergency department today after ingesting approximately #18-20 10mg oxycodone this afternoon at some point between noon and 1:00 PM per history. Patient states that she did not take these pills to hurt herself, stating that she only took them to "get some rest". Patient states that the pills she took were from a prescription of her's from about one year ago. Patient states she took "oxycodone with the a word". Patient asked if this word is acetaminophen, to which she indicates yes. Patient only complaints of nausea currently. Patient again denies that this was a suicidal attempt, reiterating that she "just wanted some rest". TRAVEL OUTSIDE OF THE [place] IN LAST 30 DAYS: No - Related Data Allergies/Adverse Reactions: No Known Allergies Allergy (Verified 02/06/18 17:24) Past Medical History - General Information source: Patient - Social History Smoking Status: Never Smoker Cigarette use (# per day): No Frequency of alcohol use: None Drug Abuse: None Lives with: Family Family History: Reviewed & Not Pertinent Patient has homicidal ideation: No - Past Medical History Cardiac Medical History: Reports: Hx Hypertension GI Medical History: Reports: Hx Gastroesophageal Reflux Disease Psychiatric Medical History: Reports: Hx Anxiety, Hx Depression Past Surgical History: Reports: Hx Appendectomy, Hx Hysterectomy, Hx Tubal Ligation - Immunizations Immunizations up to date: No Hx Diphtheria, Pertussis, Tetanus Vaccination: Yes Review of Systems - Review of Systems Constitutional: No symptoms reported EENT: No symptoms reported Cardiovascular: No symptoms reported Respiratory: No symptoms reported Gastrointestinal: No symptoms reported Genitourinary: No symptoms reported Female Genitourinary: No symptoms reported Musculoskeletal: No symptoms reported Skin: No symptoms reported Hematologic/Lymphatic: No symptoms reported Neurological/Psychological: See HPI, Depression, Suicidal ideation, Other - at tempted overdose -: Yes All other systems reviewed and negative Physical Exam - Vital signs Vitals: Temp Pulse Resp Pulse Ox 97.4 F 62 16 99 11/18/19 15:51 11/18/19 15:51 11/18/19 15:51 11/18/19 15:51 Interpretation: Normal - General General appearance: Appears well, Other - Drowsy but easily arousable - HEENT Head: Normocephalic, Atraumatic Eyes: Normal Pupils: PERRL - Respiratory Respiratory status: No respiratory distress Chest status: Nontender Breath sounds: Normal Chest palpation: Normal - Cardiovascular Rhythm: Regular Heart sounds: Normal auscultation Murmur: No - Abdominal Inspection: Normal Distension: No distension Bowel sounds: Normal Tenderness: Nontender Organomegaly: No organomegaly - Back Back: Normal, Nontender - Extremities General upper extremity: Normal inspection, Nontender, Normal color, Normal ROM, Normal temperature General lower extremity: Normal inspection, Nontender, Normal color, Normal ROM, Normal temperature, Normal weight bearing. No: Rosita's sign - Neurological Neuro grossly intact: Yes Cognition: Normal Orientation: AAOx4 Carmelo Coma Scale Eye Opening: Spontaneous Carmelo Coma Scale Verbal: Oriented Victoria Coma Scale Motor: Obeys Commands Carmelo Coma Scale Total: 15 Speech: Normal Motor strength normal: LUE, RUE, LLE, RLE Sensory: Normal - Psychological Associated symptoms: Flat affect - Skin Skin Temperature: Warm Skin Moisture: Dry Skin Color: Normal Course - Re-evaluation Re-evalutation: Patient is a 54-year-old female who allegedly took 18 oxycodone because she wanted to sleep. She has felt overwhelmed recently. Patient with no Tylenol in her system. Patient states that she took a handful. She has been evaluated by mental health and will be held for observation at this time. She is otherwise medically stable and again has had no acetaminophen in her system at a 4-hour level. Care will be transitioned to Dr. Naylor. - Vital Signs Vital signs: Temp Pulse Resp BP Pulse Ox 98.6 F 62 14 116/80 97 11/18/19 17:01 11/18/19 15:51 11/19/19 00:01 11/19/19 00:01 11/18/19 23:31 - Laboratory Result Diagrams: 11/18/19 17:37 11/18/19 17:37 Laboratory results interpreted by me: 11/18/19 17:37 Sodium 136.3 L Glucose 113 H Salicylates < 1.0 L Acetaminophen < 10 L Discharge - Discharge Clinical Impression: Overdose Qualifiers: Encounter type: initial encounter Injury intent: undetermined intent Qualified Code(s): T50.904A - Poisoning by unspecified drugs, medicaments and biological substances, undetermined, initial encounter Condition: Stable Disposition: OTHER [facility]errals: [facility] [[facility] - Follow up as needed I personally performed the services described in the documentation, reviewed and edited the documentation which was dictated to the scribe in my presence, and it accurately records my words and actions.
--- NOTE | 2019-11-19 20:19 | ER Document Report ---
Entered by ABIGAIL HESS SCRIBE 11/19/19 1734 Acting as scribe for:HAYDE BIRCH DO Doctor's Note Notes: 11/19/19 17:33 No issues today. NAD. AVSS. Evaluated today by mental health. Patient will remain on IVC paperwork, seeking placement. Medically stable. 11/19/19 20:19 Law enforcement is here to take patient to [facility]. Medically stable for transfer. I personally performed the services described in the documentation, reviewed and edited the documentation which was dictated to the scribe in my presence, and it accurately records my words and actions.
[2019-11-19 20:27] VITALS: BP 134/89
--- NOTE | 2019-11-20 02:00 | PSYCHOLOGICAL NOTE ---
Psych Note - Psych Note Date seen by psych provider: 11/19/19 Time seen by psych provider: 13:16 - [id number] Psych Note: Presenting Problem: Patient is a 54 year old female who presented to the [facility] ED yesterday via privately owned vehicle operated by her daughter for intentional overdose of 18 oxycodone to sleep. She was somnolent but able to answer questions. She denied SI and said she was trying to sleep. She was subsequently put on 24 Hour Petition for Evaluation in order to be reassessed today after not being somnolent form overdose, as well as the necessary medical monitoring. Today patient stated she remembered talking with this clinician yesterday. When asked how she felt she commented "I feel embarrassed and disappointed, I know better." She continued to be adamant she was "really tired and wanted to rest" and denied being suicide attempt. She denied current suicidal ideation. When [facility] she did not deny missing appointments or not returning calls. When challenged about him saying he could see her and how they were doing teletherapy she said "I did not know that." Patient was alert and oriented to self, person, place, time and situation. Mood continued to be depressed with flat affect. She continued to deny current SI/H or this being a suicide attempt. Patient did not appear to be responding to internal stimuli as evidenced by fair eye contact and answering questions appropriately when addressed. Conversational speech was monotone. Thought processes were linear. Intellectual abilities are estimated to be average. Insight, judgment and impulse control were poor as evidenced by taking eighteen 10MG oxycodone to sleep then today admitted she knew better so feels embarrassed and disappointed. Collateral: Dr. Argueta was able to reach out to patient's therapist Dr. Mora at the [facility]. He identified he hasn't seen patient since May-June 2019, she missed her last 2 sessions and she did not return his phone calls. He noted she had chronic passive suicidal ideation and kept saying she wanted to go inpatient. He reported he did not think she was caregiver of mother when he saw her and her missing appointments may have been due to taking on that responsibility but she never cancelled, rescheduled or returned his calls. [place] He described patient as constantly taking on the victim role. He identified they were trying to get patient into [facility] for inpatient and had been in contact with [facility] in admissions. He stated he could do an emergency appointment on person tomorrow if discharged. Interventions: Used open ended questioning to obtain information regarding how patient felt today and overdose intent. Challenged and confronted patient about missing her last two therapy sessions and not returning phone calls. Diagnosis: Overdose of eighteen 10MG Oxycodone (patient reported an old prescription of hers) Increased Psychosocial stress (caregiver of ill mother, TIM, no work at first and now working from home, increased interaction and being around spouse who has been argumentative and yelling) Diagnosed with PTSD by [employer] per patient Chronic passive SI per outpatient [facility] therapist Impression/Plan: Recommendation for FULL IVC. Patient admitted to taking eighteen 10MG oxycodone, some at first, they didn't make her sleep, so ten minutes later took more and before she knew it she took them all. She admitted to reaching out to daughter but wanted to stay home with daughter watching her sleep but daughter said no you are going to hospital or I'm calling . Patient admitted to a previous similar incident 1.5 years ago where she was in [facility] ED for 3 days. She also admitted to an actual overdose of Ambien which was a suicide attempt in 2004 and resulted in hospitalization at [facility]. Today patient continued to present with depressed mood, flat affect and monotone in conversational speech. Collateral from therapist at [facility] revealed patient missed her last two therapy session, never called to cancel or reschedule and never return therapist phone calls. She has a history of chronic passive SI and in May-June 2019 prior to taking on stressful role of caregiver to mother had already been talking about wanting to go inpatient. She denied any medication changes recently, has not had therapy due to her own lack of follow up and follow through, has increased stress (caregiver, COVID) and had significant overdose (negative action/coping strategy) even if she was just trying to sleep. Consulted with Dr. Argueta regarding the management and care of patient. ED Physician in agreement with recommendations.
== END 2019-11-19 20:13 ==
LOC: ER 15:42
DX: F41.9 Anxiety disorder, unspecified (principal); F32.9 Major depressive disorder, single episode, unspecified; R07.9 Chest pain, unspecified; I10 Essential (primary) hypertension; Z90.710 Acquired absence of both cervix and uterus; T50.904A Poisoning by unspecified drugs, medicaments and biological substances, undetermined, initial encounter; X58.XXXA Exposure to other specified factors, initial encounter
CPT/HCPCS: 93005; 99285; 96374; 36415; 80307 ×4; 82550; 85025; 80053; 81001; 84484; 93010; J2405

== ENCOUNTER 2020-06-20 19:29 | Inpatient (IN) | payer OTHER, BC ==
--- NOTE | 2020-06-20 19:45 | ER Document Report ---
ED Medical Screen (RME) - General Stated Complaint: SHORT OF BREATH CHEST TIGHTNES Time Seen by Provider: 06/20/20 19:40 Primary Care Provider: CRISPIN ANNA [Primary Care Provider] - Follow up as needed Notes: HPI: 54-year-old female with history of hypertension presenting with 2 days of shortness of breath, some pleuritic discomfort in the epigastric region with a deep breath. Patient reports some tightness and pressure in the chest with more pressure on the right side a more tightness on the left. Does not radiate into the neck and back. This is intermittent in nature may last up to 30 seconds at a time does not change with position or movement. Patient states that many years ago she did have a heart catheterization that did not show any abnormalities other than an enlarged heart. Patient reports a sensation of tightness or swelling in both ankles today as well PHYSICAL EXAMINATION: Lung sounds are clear to auscultation. Regular rate and rhythm. No abdominal pain on palpation. No visible pitting edema in the lower extremities I have greeted and performed a rapid initial assessment of this patient. A comprehensive ED assessment and evaluation of the patient, analysis of test results and completion of medical decision making process will be conducted by an additional ED providers. TRAVEL OUTSIDE OF THE [place] IN LAST 30 DAYS: No - Related Data Allergies/Adverse Reactions: No Known Allergies Allergy (Verified 02/06/18 17:24) Past Medical History - Past Medical History Cardiac Medical History: Reports: Hx Hypertension Denies: Hx Coronary Artery Disease, Hx Heart Attack Pulmonary Medical History: Denies: Hx Asthma, Hx Bronchitis, Hx COPD, Hx Pneumonia Neurological Medical History: Denies: Hx Cerebrovascular Accident, Hx Seizures Renal/ Medical History: Denies: Hx Peritoneal Dialysis GI Medical History: Reports: Hx Gastroesophageal Reflux Disease Musculoskeltal Medical History: Denies Hx Arthritis Psychiatric Medical History: Reports: Hx Anxiety, Hx Depression Past Surgical History: Reports: Hx Appendectomy, Hx Hysterectomy, Hx Tubal Ligation - Immunizations Immunizations up to date: No Hx Diphtheria, Pertussis, Tetanus Vaccination: Yes Doctor's Discharge - Discharge [facility]errals: [facility] - Follow up as needed
--- NOTE | 2020-06-20 20:55 | RADIOLOGY REPORT (SQ) ---
EXAM DESCRIPTION: CHEST SINGLE VIEW CLINICAL HISTORY: 54 years Female, sob COMPARISON: Single view of the chest February 06, 2018 FINDINGS: Lungs: Lung volumes have decreased there is been development of interstitial infiltrate in the mid and lower lung zones. No pleural effusion. No pneumothorax. Mediastinum: Cardiac and mediastinal silhouette are within normal limits. Bones: Osseous structures are normal. IMPRESSION: Interval reduction in lung volumes with development of interstitial infiltrate in the mid and lower lung zones.
[2020-06-20 21:32] LABS: ABSOLUTE BASOPHILS # (AUTO) 0.1 10^3/uL (0.0-0.2); ABSOLUTE EOSINOPHILS # (AUTO) 0.1 10^3/uL (0.0-0.6); ABSOLUTE LYMPHOCYTES (AUTO) 1.9 10^3/uL (0.5-4.7); ABSOLUTE MONOCYTES (AUTO) 0.6 10^3/uL (0.1-1.4); ABSOLUTE NEUT (AUTO) 5.9 10^3/uL (1.7-8.2); BASOPHILS % (AUTO) 1.2 % (0-2); EOSINOPHILS % (AUTO) 1.7 % (0-6); HEMATOCRIT 39.1 % (36.0-47.0); HEMOGLOBIN 13.2 g/dL (12.0-15.5); LYMPHOCYTES % (AUTO) 21.7 % (13-45); MEAN CORPUSCULAR HEMOGLOBIN 29.8 pg (27.0-33.4); MEAN CORPUSCULAR HGB CONC 33.8 g/dL (32.0-36.0); MEAN CORPUSCULAR VOLUME 88 fl (80-97); MONOCYTES % (AUTO) 7.1 % (3-13); PLATELET COUNT 296 10^3/uL (150-450); RED BLOOD COUNT 4.42 10^6/uL (3.72-5.28); RED CELL DISTRIBUTION WIDTH 13.7 % (11.5-14.0); SEGMENTED NEUTROPHILS % (AUTO) 68.3 % (42-78); TOTAL CELLS COUNTED % (AUTO) 100 %; WHITE BLOOD COUNT 8.7 10^3/uL (4.0-10.5)
[2020-06-20 21:49] LABS: ALBUMIN 3.9 g/dL (3.5-5.0); ALKALINE PHOSPHATASE 105 U/L (38-126); ANION GAP 6 (5-19); ASPARTATE AMINO TRANSFERASE 22 U/L (14-36); BILIRUBIN,TOTAL 0.8 mg/dL (0.2-1.3); BLOOD UREA NITROGEN 14 mg/dL (7-20); CALCIUM 9.2 mg/dL (8.4-10.2); CARBON DIOXIDE 26 mmol/L (22-30); CHLORIDE 106 mmol/L (98-107); GLUCOSE 97 mg/dL (75-110); POTASSIUM 3.7 mmol/L (3.6-5.0); TOTAL PROTEIN 6.9 g/dL (6.3-8.2)
[2020-06-20 22:01] LABS: NT PRO BNP 1400 pg/mL (<125); TROPONIN I < 0.012 ng/mL
[2020-06-20] MEDS ORDERED: KETOROLAC TROMETHAMINE INJ/PF 30 MG/1 ML SDV IV ONE (22:04)
--- NOTE | 2020-06-20 22:51 | ER Document Report ---
ED Respiratory Problem - General Chief Complaint: Shortness Of Breath Stated Complaint: SHORT OF BREATH CHEST TIGHTNESS Time Seen by Provider: 06/20/20 19:40 Primary Care Provider: CRISPIN NANA [Primary Care Provider] - Follow up as needed Notes: Patient is a 54-year-old female presents emergency department with shortness of breath. Patient reports that her shortness of breath started yesterday. States that she had some chest pressure on the right side of her chest. Reports bilateral lower extremity swelling in her calves and near her ankles. Patient has history of cardiomegaly with normal catheterizations in 2004. Patient states that she has a history of high blood pressure. Denies any fever, body aches, or chills. TRAVEL OUTSIDE OF THE [place] IN LAST 30 DAYS: No - Related Data Allergies/Adverse Reactions: No Known Allergies Allergy (Verified 06/20/20 21:22) Home Medications: lisinopril, gabapentin, adderal, pantoprazole, Past Medical History - Social History Smoking Status: Never Smoker Family History: Reviewed & Not Pertinent Patient has homicidal ideation: No - Past Medical History Cardiac Medical History: Reports: Hx Hypertension Denies: Hx Coronary Artery Disease, Hx Heart Attack Pulmonary Medical History: Denies: Hx Asthma, Hx Bronchitis, Hx COPD, Hx Pneumonia Neurological Medical History: Denies: Hx Cerebrovascular Accident, Hx Seizures Renal/ Medical History: Denies: Hx Peritoneal Dialysis GI Medical History: Reports: Hx Gastroesophageal Reflux Disease Musculoskeletal Medical History: Denies Hx Arthritis Psychiatric Medical History: Reports: Hx Anxiety, Hx Depression Past Surgical History: Reports: Hx Appendectomy, Hx Hysterectomy, Hx Tubal Ligation - Immunizations Immunizations up to date: No Hx Diphtheria, Pertussis, Tetanus Vaccination: Yes Review of Systems - Review of Systems Notes: REVIEW OF SYSTEMS: CONSTITUTIONAL : Denies recent illness. Denies recent unintentional weight loss. Denies fever, chills, or sweats. EENT: Denies eye, ear, throat, or mouth pain, discharge, or symptoms. Denies nasal or sinus congestion. CARDIOVASCULAR: See HPI. RESPIRATORY: See HPI. GASTROINTESTINAL: Denies nausea, vomiting, and diarrhea. Denies abdominal pain. Denies constipation. GENITOURINARY: Denies difficulty urinating, burning, blood in urine, urgency or frequency. MUSCULOSKELETAL: Denies neck and back pain. Denies joint pain or swelling. SKIN: Denies rash, itchiness, or lesions HEMATOLOGIC : Denies easy bruising or bleeding. LYMPHATIC: Denies swollen, painful, enlarged glands. NEUROLOGICAL: Denies no numbness or tingling denies weakness. Denies headache. Denies altered mental status. Denies alteration in speech. PSYCHIATRIC: Denies stress, anxiety, alteration in sleep patterns, or depression. All other systems reviewed and negative. Physical Exam - Vital signs Vitals: Temp Pulse Resp BP Pulse Ox 98.2 F 91 20 155/91 H 100 06/20/20 19:46 06/20/20 19:46 06/20/20 19:46 06/20/20 19:46 06/20/20 19:46 - Notes Notes: PHYSICAL EXAMINATION: GENERAL: Appears well, healthy, well-nourished, no acute distress. HEAD: Normocephalic, atraumatic. EYES: PERRL, conjunctiva normal, all extraocular movements intact, sclera nonicteric ENT: Moist mucous membranes. NECK: Supple, no noticeable swelling, redness, rash. Normal range of motion. LUNGS: Diminished in bilateral bases. CARDIOVASCULAR: S1-S2, regular rate, regular rhythm. Radial pulses 2+, normal. ABDOMEN: Normoactive bowel sounds. Soft, nontender, no guarding, no rebound tenderness, and no masses palpated. EXTREMITIES: Normal strength and range of motion. No cyanosis. Nonpitting edema to bilateral lower extremities. NEUROLOGICAL: Moves all extremities upon command. Strength 5/5 in all extremities. PSYCH: Normal mood, normal affect. SKIN: Warm, dry. No rash, lesions, ulcerations noted. Normal skin turgor. Course - Re-evaluation Re-evalutation: 06/20/20 23:01 Chemistries are unremarkable. Hematology is unremarkable. Lipase normal. Troponin is normal. BNP is 1400 and there is vascular congestion noted on chest x-ray. I spoke with Dr. Guo, the snailer on-call. He is carlos g admission for the patient. 06/20/20 23:[address] Lemus, the hospitalist. Patient will be admitted to the telemetry unit. He would also like me to add on a D-dimer. This was ordered. - Vital Signs Vital signs: Temp Pulse Resp BP Pulse Ox 98.2 F 91 18 150/92 H 96 06/20/20 19:46 06/20/20 19:46 06/20/20 22:01 06/20/20 22:01 06/20/20 22:01 - Laboratory Results Result Diagrams: 06/20/20 21:17 06/20/20 21:17 Laboratory Results Interpreted: 06/20/20 21:17 NT-Pro-B Natriuret Pep 1400 H Critical Laboratory Results Reviewed: No Critical Results - Radiology Results Critical Radiology Results Reviewed: No Critical Results - EKG Interpretation by Me Additional EKG results interpreted by me: 06/20/20 23:14 Sinus rhythm. Rate 91. NJ 196; QRS 90; QT 364; QTc 448. No ST elevations or depressions noted. Improved from previous EKG from November 172019, which showed a first-degree heart block. Discharge - Discharge Clinical Impression: New onset of congestive heart failure, Lower extremity edema, Pulmonary vascular congestion Condition: Stable Disposition: ADMITTED INPATIENT Admitting Provider: [facility] Admitted: Telemetry [facility] [[facility] - Follow up as needed
[2020-06-20] MEDS ORDERED: FUROSEMIDE INJ/PF 20 MG/2 ML SDV IV ONE (23:00)
[2020-06-21 00:14] LABS: APPEARANCE,URINE CLEAR; BILIRUBIN,URINE NEGATIVE (NEGATIVE); COLOR,URINE COLORLESS; GLUCOSE, URINE NEGATIVE (NEGATIVE); KETONES,URINE NEGATIVE (NEGATIVE); LEUKOCYTE ESTERASE,URINE NEGATIVE (NEGATIVE); NITRITE,URINE NEGATIVE (NEGATIVE); PROTEIN,URINE NEGATIVE (NEGATIVE); URINE SPECIFIC GRAVITY 1.005; UROBILINOGEN,URINE NEGATIVE mg/dL (<2.0)
--- NOTE | 2020-06-21 01:57 | RADIOLOGY REPORT (SQ) ---
CLINICAL HISTORY: r/o pe COMPARISON: None. 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 MIPS reconstructions were generated. This exam was performed according to our departmental dose-optimization program, which includes automated exposure control, adjustment of the mA and/or kV according to patient size and/or use of iterative reconstruction technique. MIP images were generated. 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 There is no gross dissection. Pulmonary arteries are adequately opacified without acute or chronic filling defects. The heart is normal in size. There is no pericardial effusion. Intrathoracic lymph nodes are not enlarged. There are small pleural effusions. Central airways are patent. There are mild patchy opacities in the anterior upper lobes as well as within the right middle lobe. There are no acute abnormalities within the limited images of the upper abdomen. There are no acute osseous findings. No suspicious bony lesions. IMPRESSION: Bilateral pneumonia. Bilateral pleural effusions. No aortic dissection or aneurysm. No pulmonary embolus.
--- NOTE | 2020-06-21 03:22 | PDOC H&P ---
History of Present Illness Admission Date/PCP: 06/20/20 23:[facility] Patient complains of: Shortness of breath and chest pain History of Present Illness: SRIKANTH ZAPATA is a 54 year old female For the last 2 days she noticed some exertional shortness of breath, intermittent chest pain. She had right-sided chest pain which was sharp, worse with taking a deep breath or moving around. She had some left-sided chest pain which was more pressure type. She noticed some swelling of her legs, it was symmetric. She had no fever. No coughing. In the emergency department it was felt that she may have congestive heart failure. Dr. Guo was called by the emergency department provider. He is going to see the patient tomorrow for consultation. When I arrived to see the patient he appeared to be comfortable. Prior to my arrival she received 20 mg of intravenous furosemide. She was hemodynamically stable. She had a good oxygen saturation in the high 90s on room air. She did not appear to be in distress. She complained about some mild intermittent right-sided sharp chest pain. She had no shortness of breath. Past Medical History Cardiac Medical History: Reports: Hypertension Denies: Coronary Artery Disease, Myocardial Infarction Pulmonary Medical History: Denies: Asthma, Bronchitis, Chronic Obstructive Pulmonary Disease (COPD), Pneumonia Neurological Medical History: Denies: Seizures Endocrine Medical History: Reports: None GI Medical History: Reports: Gastroesophageal Reflux Disease Musculoskeltal Medical History: Denies: Arthritis Psychiatric Medical History: Reports: Depression Hematology: Denies: Anemia Past Surgical History Past Surgical History: Reports: Appendectomy, Hysterectomy, Tubal Ligation Social History Lives with: Family Smoking Status: Never Smoker Frequency of Alcohol Use: None Hx Recreational Drug Use: No Hx Prescription Drug Abuse: No Family History Family History: CAD, CVA Parental Family History Reviewed: Yes Children Family History Reviewed: Yes Sibling(s) Family History Reviewed.: Yes Medication/Allergy Home Medications: Lisinopril/Hydrochlorothiazide [Lisinopril-Hctz 20-12.5 mg Tab] 1 each PO DAILY 06/02/13 Topiramate [Topamax 100 mg Tablet] 100 mg PO DAILY 06/02/13 Bupropion HCl [Wellbutrin Sr 100 mg Tablet] 1 tab PO BID 02/12/16 Dextroamphetamine/Amphetamine [Adderall 5 mg Tablet] 1 tab PO BID 02/12/16 Esomeprazole Magnesium [Nexium] 1 cap PO DAILY 02/12/16 Ibuprofen [Motrin 800 mg Tablet] 800 mg PO Q8HP PRN #60 tablet 02/16/16 Ondansetron HCl [Zofran 4 mg Tablet] 1 - 2 tab PO Q4H PRN #20 tablet 02/16/16 Oxycodone HCl/Acetaminophen [Percocet 5-325 mg Tablet] 1 tab PO Q6HP PRN #30 tablet 02/16/16 Hydrocodone/Acetaminophen [Evans 5-325 Tablet] 1 each PO Q6 #15 tablet 03/19/16 Ondansetron [Zofran Odt] 8 mg PO QID #15 tab.rapdis 03/19/16 Cyclobenzaprine HCl [Flexeril 10 mg Tablet] 10 mg PO TIDP PRN #15 tab 06/08/17 Ketorolac Tromethamine [Toradol 10 mg Tablet] 10 mg PO Q6HP PRN #20 tablet 06/08/17 Aripiprazole [Abilify 5 mg Tablet] 5 mg PO DAILY 11/17/17 Bupropion HCl [Wellbutrin Xl 300mg 24hr Tablet] 300 mg PO DAILY 11/17/17 Dextroamphetamine/Amphetamine [Adderall 20 mg Tablet] 10 mg PO 1200,1500 11/17/17 Dextroamphetamine/Amphetamine [Adderall 20 mg Tablet] 10 mg PO ASDIR 11/17/17 Dextroamphetamine/Amphetamine [Adderall Xr 20 mg Capsule] 20 mg PO QAM 11/17/17 Fluoxetine HCl [Prozac] 20 mg PO BID 11/17/17 Lisinopril/Hydrochlorothiazide [Zestoretic 10-12.5 mg Tablet] 1 tab PO DAILY 11/17/17 Buspirone HCl [Buspar 5 mg Tablet] 1 tab PO BID 7 Days tab 11/18/17 Citalopram Hydrobromide [Celexa 20 mg Tablet] 20 mg PO DAILY #7 tablet 11/18/17 Allergies/Adverse Reactions: No Known Allergies Allergy (Verified 06/20/20 21:22) Review of Systems Constitutional: PRESENT: fatigue Ears: ABSENT: hearing changes Cardiovascular: PRESENT: chest pain, dyspnea on exertion Respiratory: ABSENT: cough, hemoptysis Gastrointestinal: ABSENT: abdominal pain, constipation, diarrhea, hematemesis, hematochezia, nausea, vomiting Genitourinary: ABSENT: dysuria, hematuria Neurological: ABSENT: abnormal gait, abnormal speech, confusion, dizziness, focal weakness, syncope Psychiatric: ABSENT: anxiety, depression, homidical ideation, suicidal ideation Physical Exam Vital Signs: Temp Pulse Resp BP Pulse Ox 98.2 F 80 20 147/93 H 97 06/21/20 01:20 06/21/20 02:15 06/21/20 01:20 06/21/20 01:20 06/21/20 01:20 Intake & Output 06/19/20 06/20/20 06/21/20 06:59 06:59 06:59 Weight 99.6 kg General appearance: PRESENT: no acute distress Head exam: PRESENT: atraumatic Eye exam: PRESENT: conjunctiva pink, EOMI, PERRLA. ABSENT: scleral icterus Neck exam: ABSENT: carotid bruit, JVD, lymphadenopathy, thyromegaly Respiratory exam: PRESENT: clear to auscultation rissa. ABSENT: rales, rhonchi, wheezes Cardiovascular exam: PRESENT: RRR, systolic murmur. ABSENT: gallop Pulses: PRESENT: normal dorsalis pedis pul Vascular exam: PRESENT: normal capillary refill GI/Abdominal exam: PRESENT: normal bowel sounds, soft. ABSENT: distended, guarding, mass, organolmegaly, rebound, tenderness Extremities exam: PRESENT: other - Very minimal bilateral lower leg swelling. Barely noticeable. No calf tenderness. Musculoskeletal exam: PRESENT: ambulatory, full ROM Psychiatric exam: PRESENT: appropriate affect, normal mood. ABSENT: homicidal ideation, suicidal ideation Results Laboratory Results: 06/20/20 21:17 06/20/20 21:17 06/20/20 06/20/20 06/20/20 21:17 21:17 21:17 WBC 8.7 RBC 4.42 Hgb 13.2 Hct 39.1 MCV 88 MCH 29.8 MCHC 33.8 RDW 13.7 Plt Count 296 Seg Neutrophils % 68.3 Sodium 137.7 Potassium 3.7 Chloride 106 Carbon Dioxide 26 Anion Gap 6 BUN 14 Creatinine 0.97 Est GFR ( Amer) > 60 Glucose 97 Calcium 9.2 Total Bilirubin 0.8 AST 22 Alkaline Phosphatase 105 Total Protein 6.9 Albumin 3.9 Lipase 72.8 Urine Color Urine Appearance Urine pH Ur Specific [place] Urine Protein Urine Glucose (UA) Urine Ketones Urine Blood Urine Nitrite Ur Leukocyte Esterase 06/20/20 23:44 WBC RBC Hgb Hct MCV MCH MCHC RDW Plt Count Seg Neutrophils % Sodium Potassium Chloride Carbon Dioxide Anion Gap BUN Creatinine Est GFR ( Amer) Glucose Calcium Total Bilirubin AST Alkaline Phosphatase Total Protein Albumin Lipase Urine Color COLORLESS Urine Appearance CLEAR Urine pH 7.0 Ur Specific [place] 1.005 Urine Protein NEGATIVE Urine Glucose (UA) NEGATIVE Urine Ketones NEGATIVE Urine Blood NEGATIVE Urine Nitrite NEGATIVE Ur Leukocyte Esterase NEGATIVE 06/20/20 21:17 Troponin I < 0.012 NT-Pro-B Natriuret Pep 1400 H EKG Comments: Sinus rhythm, nonspecific repolarization abnormalities. Impressions: Chest X-Ray 06/20/20 19:43 IMPRESSION: Interval reduction in lung volumes with development of interstitial infiltrate in the mid and lower lung zones. Chest/Abdomen CTA 06/21/20 00:00 IMPRESSION: Bilateral pneumonia. Bilateral pleural effusions. No aortic dissection or aneurysm. No pulmonary embolus. Assessment and Plan - Diagnosis (1) SOB (shortness of breath) Is this a current diagnosis for this admission?: Yes Plan: The patient had exertional shortness of breath earlier. She does not have any sign of shortness of breath at rest. She maintains oxygen saturation in the hi gh 90s. Etiology remains unclear. I suggested to order a D-dimer which was elevated. CT pulmonary angiogram was done which showed some infiltrates in the upper lobes and right middle lobe. The official reading was pneumonia. The patient does not have any clinical sign of bacterial infection. This CT finding raises the possibility of coronavirus infection. She may have viral pneumonia, mild secondary to coronavirus infection. Coronavirus test is pending. Meantime the patient is in isolation. Congestive heart failure does not seem to be very likely. She may had some minimal vascular congestion but her examination fairly unremarkable. She was placed on surveillance system monitor. Repeat cardiac enzymes. Echocardiogram. Dr. Guo is going to see the patient for consultation in the morning. I am not ordering any additional diuretic at this point. (2) Chest pain Qualifiers: Chest pain type: unspecified Qualified Code(s): R07.9 - Chest pain, unspecified Is this a current diagnosis for this admission?: Yes Plan: The patient describes 2 different kinds of chest pain. One was a sharp right- sided chest pain and one was a pressure type left-sided chest pain. Left-sided pain has resolved. She has minor right-sided intermittent sharp pain. Acute cardiac ischemia unlikely. The pain is most likely noncardiac. (3) Lower extremity edema Is this a current diagnosis for this admission?: Yes Plan: She has very minimal, barely noticeable lower extremity swelling. I ordered a venous Doppler ultrasound to rule out DVT. (4) Hypertension Qualifiers: Hypertension type: essential hypertension Qualified Code(s): I10 - Essential (primary) hypertension Is this a current diagnosis for this admission?: Yes Plan: Continue home blood pressure medication. Make appropriate adjustment if needed. - Time Time Spent with patient: 35 or more minutes Medications reviewed and adjusted accordingly: Yes Anticipated Discharge Disposition: Home, Self Care Anticipated Discharge Timeframe: within 48 hours - Inpatient Certification Medical Necessity: Need For Continuous Telemetry Monitoring, Risk of Complication if Not Cared For in Hospital, Risk of Diagnosis Which Will Require Inpatient Eval/Care/Monitoring
[2020-06-21 04:03] LABS: ABSOLUTE BASOPHILS # (AUTO) 0.1 10^3/uL (0.0-0.2); ABSOLUTE EOSINOPHILS # (AUTO) 0.1 10^3/uL (0.0-0.6); ABSOLUTE LYMPHOCYTES (AUTO) 1.6 10^3/uL (0.5-4.7); ABSOLUTE MONOCYTES (AUTO) 0.6 10^3/uL (0.1-1.4); ABSOLUTE NEUT (AUTO) 5.6 10^3/uL (1.7-8.2); BASOPHILS % (AUTO) 1.1 % (0-2); EOSINOPHILS % (AUTO) 1.5 % (0-6); HEMOGLOBIN 13.1 g/dL (12.0-15.5); MEAN CORPUSCULAR HEMOGLOBIN 30.4 pg (27.0-33.4); MEAN CORPUSCULAR HGB CONC 34.4 g/dL (32.0-36.0); MEAN CORPUSCULAR VOLUME 88 fl (80-97); MONOCYTES % (AUTO) 7.3 % (3-13); PLATELET COUNT 268 10^3/uL (150-450); RED CELL DISTRIBUTION WIDTH 13.5 % (11.5-14.0); SEGMENTED NEUTROPHILS % (AUTO) 70.1 % (42-78); TOTAL CELLS COUNTED % (AUTO) 100 %
[2020-06-21 04:21] LABS: ALBUMIN 3.7 g/dL (3.5-5.0); ALKALINE PHOSPHATASE 105 U/L (38-126); ANION GAP 9 (5-19); ASPARTATE AMINO TRANSFERASE 22 U/L (14-36); BILIRUBIN,DIRECT 0.1 mg/dL (0.0-0.4); BILIRUBIN,TOTAL 0.9 mg/dL (0.2-1.3); BLOOD UREA NITROGEN 16 mg/dL (7-20); CALCIUM 8.8 mg/dL (8.4-10.2); CARBON DIOXIDE 25 mmol/L (22-30); CHLORIDE 105 mmol/L (98-107); CHOLESTEROL 206.08 mg/dL (0-200); GLUCOSE 98 mg/dL (75-110); POTASSIUM 3.7 mmol/L (3.6-5.0); TOTAL PROTEIN 6.6 g/dL (6.3-8.2); TRIGLYCERIDES 138 mg/dL (<150)
[2020-06-21 04:32] LABS: DIRECT LDL 143 mg/dL (<100)
[2020-06-21] MEDS: ACETAMINOPHEN 325 MG TABLET PO PRN ×3 (06:43→18:51)
[2020-06-21] MEDS: LISINOPRIL 10 MG TABLET PO SCH (09:00)
[2020-06-21] MEDS: ENOXAPARIN SODIUM INJ 40 MG/0.4 ML DISP.SYRIN SUBCUT SCH (09:01)
--- NOTE | 2020-06-21 09:44 | PDOC CONSULTATION ---
Consultation Consult Date: 06/21/20 Attending physician:: NHAN CALABRESE Provider Consulted: RONAK CARRION Consult reason:: Possible HF History of Present Illness Admission Date/PCP: 06/20/20 23:19 [facility] History of Present Illness: SRIKANTH ZAPATA is a 54 year old female with history of hypertension, major depression, GERD, migraines, former smoker who quit 18 years ago and with family history of premature coronary artery disease in her father who had his first OK at age 40 years, in her brother who had his first OK at age 58 and in her sister who had a CVA at age 49 years who is consulted to our service for evaluation of possible heart failure. The patient had been in her usual state of health until 2 days ago when she noticed the sudden onset of shortness of breath while she was walking without any other associated symptoms. Her symptoms only lasted for approximately 1 minute and caused the patient to hyperventilate, her symptoms resolved spontaneously and she presented to our emergency room for further evaluation. She endorses lower extremity edema as well as intermittent chest pain localized to both the right side of the chest in the substernal area which she describes as a dull pressure, lasting anywhere from 20 to 30 seconds, recurs at random both at rest and during mild physical activities, without known triggers and not associated with shortness of breath, diaphoresis, palpitations, syncope and presyncope. She has a sedentary lifestyle. In the emergency room she received some IV Lasix for suspected heart failure given her abnormal BNP at 1400. Her chest x-ray demonstrated interstitial infiltrates and CT of the chest demonstrated bilateral pneumonia with pleural effusions. She had an uneventful night and feels improved this morning. She specifically denies chest pain, PND, orthopnea and shortness of breath. Physical exam on 06/21/2020: GENERAL: Pleasant and conversational. Oriented x3 with normal mood. Not in acute distress. Well groomed and well developed. HEENT: Normocephalic, atraumatic. Pupils equal. Sclerae anicteric. Oropharynx moist. NECK: No JVD. No carotid bruits. LUNGS: Clear to auscultation bilaterally. Normal respiratory effort without the use of accessory muscles or intercostal retractions. CARDIOVASCULAR: Regular rate and rhythm, normal S1 and S2 without murmurs, rubs, or gallops. PMI not displaced. ABDOMEN: No masses or tenderness to palpation. No bruit. No splenomegaly or hepatomegaly. No abdominal aorta bruit noted. EXTREMITIES: 1+ pitting edema bilaterally, no cyanosis, no clubbing. +2 pulses femoral and pedal pulses bilaterally. SKIN: No lesions or rashes. MUSCULOSKELETAL: No chest tenderness to palpation. NEUROLOGIC: Nonfocal. No gross sensory or motor deficits bilateral upper or lower extremities. Past Medical History Cardiac Medical History: Reports: Hypertension Denies: Coronary Artery Disease, Myocardial Infarction Pulmonary Medical History: Denies: Asthma, Bronchitis, Chronic Obstructive Pulmonary Disease (COPD), Pneumonia Neurological Medical History: Denies: Seizures Endocrine Medical History: Reports: None GI Medical History: Reports: Gastroesophageal Reflux Disease Musculoskeltal Medical History: Denies: Arthritis Psychiatric Medical History: Reports: Depression Hematology: Denies: Anemia Past Surgical History Past Surgical History: Reports: Appendectomy, Hysterectomy, Tubal Ligation Social History Lives with: Family Smoking Status: Never Smoker Electronic Cigarette use?: No Frequency of Alcohol Use: None Hx Recreational Drug Use: No Drugs: None Hx Prescription Drug Abuse: No Family History Family History: CAD, CVA Parental Family History Reviewed: Yes Children Family History Reviewed: Yes Sibling(s) Family History Reviewed.: Yes Medication/Allergy Home Medications: Aripiprazole [Abilify] 20 mg PO DAILY 06/21/20 Bupropion HCl [Bupropion Xl] 300 mg PO DAILY 06/21/20 Dextroamphetamine/Amphetamine [Dextroamp-Amphet ER 20 mg Cap] 1 cap.sr PO QAM 06/21/20 Dextroamphetamine/Amphetamine [Dextroamp-Amphetamin 20 mg Tab] 10 mg PO DAILY@1300 06/21/20 Gabapentin [Neurontin 300 mg Capsule] 300 mg PO BID 06/21/20 Ibuprofen [Motrin 800 mg Tablet] 800 mg PO Q8HP PRN 06/21/20 Lisinopril/Hydrochlorothiazide [Lisinopril-Hctz 20-12.5 mg Tab] 1 each PO DAILY 06/21/20 Lorazepam [Ativan 0.5 mg Tablet] 0.5 mg PO DAILYP PRN 06/21/20 Pantoprazole Sodium [Protonix [address] Tablet] 40 mg PO QAM 06/21/20 Zolpidem Tartrate [Ambien 5 mg Tablet] 5 mg PO HSP PRN 06/21/20 Allergies/Adverse Reactions: No Known Allergies Allergy (Verified 06/20/20 21:22) Physical Exam Vital Signs: Temp Pulse Resp BP Pulse Ox 98.2 F 80 20 147/93 H 97 06/21/20 01:20 06/21/20 02:15 06/21/20 01:20 06/21/20 01:20 06/21/20 01:20 Intake & Output 06/19/20 06/20/20 06/21/20 06:59 06:59 06:59 Weight 99.6 kg Results Laboratory Results: 06/21/20 03:20 06/21/20 03:20 06/20/20 06/20/20 06/20/20 21:17 21:17 21:17 WBC 8.7 RBC 4.42 Hgb 13.2 Hct 39.1 MCV 88 MCH 29.8 MCHC 33.8 RDW 13.7 Plt Count 296 Seg Neutrophils % 68.3 Sodium 137.7 Potassium 3.7 Chloride 106 Carbon Dioxide 26 Anion Gap 6 BUN 14 Creatinine 0.97 Est GFR ( Amer) > 60 Glucose 97 Calcium 9.2 Total Bilirubin 0.8 AST 22 Alkaline Phosphatase 105 Total Protein 6.9 Albumin 3.9 Triglycerides Cholesterol LDL Cholesterol Direct VLDL Cholesterol HDL Cholesterol Lipase 72.8 TSH Urine Color Urine Appearance Urine pH Ur Specific [place] Urine Protein Urine Glucose (UA) Urine Ketones Urine Blood Urine Nitrite Ur Leukocyte Esterase 06/20/20 06/21/20 06/21/20 23:44 03:20 03:20 WBC 8.0 RBC 4.30 Hgb 13.1 Hct 38.0 MCV 88 MCH 30.4 MCHC 34.4 RDW 13.5 Plt Count 268 Seg Neutrophils % 70.1 Sodium 138.7 Potassium 3.7 Chloride 105 Carbon Dioxide 25 Anion Gap 9 BUN 16 Creatinine 0.86 Est GFR ( Amer) > 60 Glucose 98 Calcium 8.8 Total Bilirubin 0.9 AST 22 Alkaline Phosphatase 105 Total Protein 6.6 Albumin 3.7 Triglycerides 138 Cholesterol 206.08 H LDL Cholesterol Direct 143 H VLDL Cholesterol 28.0 HDL Cholesterol 48 Lipase TSH Urine Color COLORLESS Urine Appearance CLEAR Urine pH 7.0 Ur Specific [place] 1.005 Urine Protein NEGATIVE Urine Glucose (UA) NEGATIVE Urine Ketones NEGATIVE Urine Blood NEGATIVE Urine Nitrite NEGATIVE Ur Leukocyte Esterase NEGATIVE 06/21/20 03:20 WBC RBC Hgb Hct MCV MCH MCHC RDW Plt Count Seg Neutrophils % Sodium Potassium Chloride Carbon Dioxide Anion Gap BUN Creatinine Est GFR ( Amer) Glucose Calcium Total Bilirubin AST Alkaline Phosphatase Total Protein Albumin Triglycerides Cholesterol LDL Cholesterol Direct VLDL Cholesterol HDL Cholesterol Lipase TSH 5.62 H Urine Color Urine Appearance Urine pH Ur Specific [place] Urine Protein Urine Glucose (UA) Urine Ketones Urine Blood Urine Nitrite Ur Leukocyte Esterase 06/20/20 06/21/20 21:17 03:20 Troponin I < 0.012 < 0.012 NT-Pro-B Natriuret Pep 1400 H Impressions: Chest X-Ray 06/20/20 19:43 IMPRESSION: Interval reduction in lung volumes with development of interstitial infiltrate in the mid and lower lung zones. Chest/Abdomen CTA 06/21/20 00:00 IMPRESSION: Bilateral pneumonia. Bilateral pleural effusions. No aortic dissection or aneurysm. No pulmonary embolus. 06/21/20 03:20 06/21/20 03:20 MCV 88 fl (80-97) 06/21/20 03:20 MCH 30.4 pg (27.0-33.4) 06/21/20 03:20 MCHC 34.4 g/dL (32.0-36.0) 06/21/20 03:20 RDW 13.5 % (11.5-14.0) 06/21/20 03:20 Seg Neutrophils % 70.1 % (42-78) 06/21/20 03:20 Chloride 105 mmol/L (98-107) 06/21/20 03:20 Carbon Dioxide 25 mmol/L (22-30) 06/21/20 03:20 Anion Gap 9 (5-19) 06/21/20 03:20 Est GFR ( Amer) > 60 (>60) 06/21/20 03:20 Glucose 98 mg/dL (75-110) 06/21/20 03:20 Calcium 8.8 mg/dL (8.4-10.2) 06/21/20 03:20 Total Bilirubin 0.9 mg/dL (0.2-1.3) 06/21/20 03:20 AST 22 U/L (14-36) 06/21/20 03:20 Alkaline Phosphatase 105 U/L (38-126) 06/21/20 03:20 Total Protein 6.6 g/dL (6.3-8.2) 06/21/20 03:20 Albumin 3.7 g/dL (3.5-5.0) 06/21/20 03:20 Triglycerides 138 mg/dL (<150) 06/21/20 03:20 Cholesterol 206.08 mg/dL (0-200) H 06/21/20 03:20 LDL Cholesterol Direct 143 mg/dL (<100) H 06/21/20 03:20 VLDL Cholesterol 28.0 mg/dL (10-31) 06/21/20 03:20 HDL Cholesterol 48 mg/dL (>40) 06/21/20 03:20 Lipase 72.8 U/L (23-300) 06/20/20 21:17 TSH 5.62 uIU/mL (0.47-4.68) H 06/21/20 03:20 Urine Color COLORLESS 06/20/20 23:44 Urine Appearance CLEAR 06/20/20 23:44 Urine pH 7.0 (5.0-9.0) 06/20/20 23:44 Ur Specific [place] 1.005 06/20/20 23:44 Urine Protein NEGATIVE mg/dL (NEGATIVE) 06/20/20 23:44 Urine Glucose (UA) NEGATIVE mg/dL (NEGATIVE) 06/20/20 23:44 Urine Ketones NEGATIVE mg/dL (NEGATIVE) 06/20/20 23:44 Urine Blood NEGATIVE (NEGATIVE) 06/20/20 23:44 Urine Nitrite NEGATIVE (NEGATIVE) 06/20/20 23:44 Ur Leukocyte Esterase NEGATIVE (NEGATIVE) 06/20/20 23:44 06/20/20 06/21/20 21:17 03:20 Troponin I < 0.012 < 0.012 NT-Pro-B Natriuret Pep 1400 H Current Medication List Generic Name Dose Route Start Last Admin Trade Name Freq PRN Reason Stop Dose Admin Acetaminophen 650 mg 06/21/20 01:57 Acetaminophen 325 Mg Tablet PO 07/21/20 01:56 Q4HP PRN FOR PAIN OR TEMP Enoxaparin Sodium 40 mg 06/21/20 10:00 Enoxaparin Sodium Inj 40 Mg/0.4 Ml Disp.Syrin SUBCUT 07/21/20 09:59 DAILY SHIRLEY Lisinopril 20 mg 06/21/20 10:00 Lisinopril 10 Mg Tablet PO 07/21/20 09:59 DAILY SHIRLEY Sodium Chloride 2.5 ml 06/21/20 06:00 06/21/20 05:16 Normal Saline Flush 2.5 Ml Disp.Syrin IV 07/21/20 05:59 2.5 ml Q8 SHIRLEY Administration Discontinued Medications Generic Name Dose Route Start Last Admin Trade Name Danae PRN Reason Stop Dose Admin Furosemide 20 mg 06/20/20 23:00 06/20/20 23:07 Furosemide Inj/Pf 20 Mg/2 Ml Sdv IV 06/20/20 23:01 20 mg NOW ONE Administration Ketorolac Tromethamine 15 mg 06/20/20 22:04 06/20/20 22:22 Ketorolac Tromethamine Inj/Pf 30 Mg/1 Ml Sdv IV 06/20/20 22:05 Not Given NOW ONE Assessment & Plan - Diagnosis (1) New onset of congestive heart failure Is this a current diagnosis for this admission?: Yes Plan: The patient has been admitted with a suspicion of new onset heart failure however she is not fluid overloaded on exam and actually denies classical symptoms of heart failure. She does not have evidence of pulmonary edema on CT scan of the chest however she does have a pneumonia. Her elevated BNP is nonspecific at this point and may be even caused by her pneumonia. She does have lower extremity edema on exam however this is also a nonspecific finding. She denies other heart failure symptoms such as PND and orthopnea. At this point we will continue with conservative management and will hold diuresis as she appears euvolemic. She is pending echocardiogram today. Recommendations: -Continue with conservative management. -Continue with current medical management. -Final cardiovascular recommendations pending review of echocardiogram. (2) Chest pain Qualifiers: Chest pain type: unspecified Qualified Code(s): R07.9 - Chest pain, unspecified Is this a current diagnosis for this admission?: Yes Plan: The patient has very nonspecific and atypical chest pain lasting seconds at a time however her family history is very impressive for ischemic cardiovascular disease as described above. She ruled out for acute coronary syndrome/OK with 2 sets of cardiac troponins. Recommendations: -We will consider outpatient stress test once her pneumonia is resolved. -Primary prevention measures. (3) Hypertension Qualifiers: Hypertension type: essential hypertension Qualified Code(s): I10 - Essential (primary) hypertension Is this a current diagnosis for this admission?: Yes Plan: Her blood pressure is above her goal of 130/80. I will defer further management to the hospitalist team.
--- NOTE | 2020-06-21 13:49 | RADIOLOGY REPORT (SQ) ---
EXAM DESCRIPTION: VENOUS BILATERAL LOWER IMAGES COMPLETED DATE/TIME: 06/21/2020 1:22 pm REASON FOR STUDY: r/o dvt COMPARISON: None. TECHNIQUE: Dynamic and static jules scale and color images acquired of both lower extremity venous sy stems. Selected spectral images acquired with additional compression and augmentation maneuvers. Imag es stored on PACS. LIMITATIONS: None. FINDINGS: RIGHT LEG COMMON FEMORAL AND FEMORAL: Normal phasicity, compression and augmentation. No visualized echogenic m aterial on jules scale. No defects on color images. POPLITEAL: Normal compression and augmentation. No visualized echogenic material on jules scale. No de fects on color images. CALF VESSELS: Normal compression and augmentation. No visualized echogenic material on jules scale. No defects on color image. GSV AND SSV: Normal compression. No visualized echogenic material on jules scale. No defects on color images. ANY DEEP VENOUS INSUFFICIENCY: Not evaluated. ANY EVIDENCE OF POPLITEAL CYST: No. OTHER: No other significant finding. LEFT LEG COMMON FEMORAL AND FEMORAL: Normal phasicity, compression and augmentation. No visualized echogenic m aterial on jules scale. No defects on color images. POPLITEAL: Normal compression and augmentation. No visualized echogenic material on jules scale. No de fects on color images. CALF VESSELS: Normal compression and augmentation. No visualized echogenic material on jules scale. No defects on color images. GSV AND SSV: Normal compression. No visualized echogenic material on jules scale. No defects on color images. ANY DEEP VENOUS INSUFFICIENCY: Not evaluated. ANY EVIDENCE POPLITEAL CYST: No. OTHER: No other significant finding. IMPRESSION: NO EVIDENCE DVT OR SVT IN EITHER LEG. TECHNICAL DOCUMENTATION: JOB ID: [id number] [employer]- All Rights Reserved Reading location - IP/workstation name: [email or web address]
[2020-06-21] MEDS ORDERED: MELATONIN 5 MG TABLET PO PRN (18:27)
--- NOTE | 2020-06-21 21:07 | XCELERA REPORT ---
[address] [address] Transthoracic Echocardiogram Report Name: SRIKANTH ZAPATA Age: 54 yrs Gender: Female : 1965 Patient Status: [facility] Study Date: 06/21/2020 10:39 AM Height: 70 in Weight: 219 lb BSA: 2.2 m2 Procedure: A complete two-dimensional transthoracic echocardiogram was performed (2D, M-mode, spectral and color flow Doppler). The study was technically adequate with some images being suboptimal in quality. Reason For Study: chf Ordering Physician: NHAN CALABRESE Performed By: Amita Lal Interpretation Summary The left ventricle is mildly dilated. Left ventricular systolic function is normal. The Ejection Fraction estimate is 50-55%. Doppler measurements suggest pseudonormalized left ventricular relaxation, which is associated with grade II/IV or mild to moderate diastolic dysfunction. The left ventricular wall motion is normal. There is no thrombus. Mild MVP. Moderate to severe MR, trace AI, mild to moderate TR, trace PI. Pulmonary pressures estimated between 49 and 54 mmHg. Recommend ARAM for further structural assessment of the mitral valve. No prior studies for comparison. MMode/2D Measurements & Calculations RVDd: 3.2 cm LVIDd: 5.8 cm FS: 27.5 % Ao root diam: IVSd: 1.00 cm LVIDs: 4.2 cm EDV(Teich): 2.9 cm 169.5 ml Ao root area: LVPWd: 1.00 cm ESV(Teich): 6.4 cm2 80.3 ml LA dimension: EF(Teich): 52.6 % 4.1 cm LVLd ap4: 7.1 cm SV(MOD-sp4): EDV(MOD-sp4): 65.0 ml 117.0 ml LVLs ap4: 5.9 cm ESV(MOD-sp4): 52.0 ml EF(MOD-sp4): 55.6 % Doppler Measurements & Calculations MV E max wesly: MV P1/2t max wesly: Ao V2 max: LV V1 max P.8 cm/sec 110.8 cm/sec 130.3 cm/sec 3.3 mmHg MV A max wesly: MV P1/2t: 38.8 msec Ao max PG: LV V1 max: 117.8 cm/sec MVA(P1/2t): 5.7 cm2 6.8 mmHg 90.9 cm/sec MV E/A: 0.94 MV dec slope: LV dP/dt: 1010 mmHg/s 837.2 cm/sec2 MV dec time: 0.17 sec PA V2 max: PI end-d wesly: TR max wesly: MV P1/2t-pr_phl: 71.0 cm/sec 168.7 cm/sec 312.2 cm/sec 46.8 msec PA max P.0 mmHg TR max P.0 mmHg Left Ventricle The left ventricle is mildly dilated. Left ventricular systolic function is normal. The Ejection Fraction estimate is 50-55%. Doppler measurements suggest pseudonormalized left ventricular relaxation, which is associated with grade II/IV or mild to moderate diastolic dysfunction. The left ventricular wall motion is normal. There is no thrombus. Right Ventricle The right ventricle is mildly dilated. The right ventricular systolic function is normal. Atria The right atrium is normal. The left atrium is moderately dilated. Interarterial septum not well visualized and not well dopplered. Cannot comment on ASD/PFO presence. Mitral Valve The mitral valve is grossly normal. There is mild mitral valve prolapse. There is no mitral valve stenosis. There is a moderate to severe amount of mitral regurgitation. Aortic Valve The aortic valve is normal in structure and functions normally. There is no aortic valvular vegetation. There is no aortic valve stenosis. There is a trace amount of aortic regurgitation. Tricuspid Valve The tricuspid valve is not well visualized, but is grossly normal. There is no tricuspid stenosis. There is a mild to moderate amount of tricuspid regurgitation. There is mild to moderate pulmonary hypertension by echo. Pulmonary pressures estimated between 49 and 54 mmHg. Pulmonic Valve The pulmonic valve is not well seen, but is grossly normal. There is no pulmonic valvular stenosis. There is a trace or physiologic amount of pulmonic regurgitation. Great Vessels The aortic root is normal size. The pulmonary artery is normal in size. The inferior vena cava appeared normal and decreased < 50% with respiration (RAP 10-15 mmHg). Effusions There is no pericardial effusion. : NHAN CALABRESE Antonio
[2020-06-21] MEDS ORDERED: LORAZEPAM 0.5 MG TABLET PO PRN (21:41)
--- NOTE | 2020-06-21 21:49 | PDOC PROGRESS REPORT ---
Subjective Date:: 06/21/20 Subjective:: 06/21/20 She was seen and examined at bedside. She denies any new complains. She is not coughing, remains afebrile and has normal white count. I do not think she has Pneumonia and she does not need abx. echo result pending. She was seen by Dr. Guo who recommended outpatient stress test. According to the patient she has had stress test before about 10 years ago for chest pain which was negative. She also stated that she has undergone cardiac cath twice last one about 5 years ago, she was told that she has cardiomegaly but no significan stenosis that needed stent placements. Reason For Visit: SHORTNESS OF BREATH,CHEST PAIN Physical Exam Vital Signs: Temp Pulse Resp BP Pulse Ox 97.9 F 68 17 126/78 H 95 06/21/20 19:28 06/21/20 19:28 06/21/20 19:28 06/21/20 19:28 06/21/20 19:28 Intake & Output 06/20/20 06/21/20 06/22/20 06:59 06:59 06:59 Intake Total 1092 Balance 1092 Weight 99.6 kg General appearance: PRESENT: no acute distress, cooperative Head exam: PRESENT: atraumatic, normocephalic Eye exam: PRESENT: EOMI, PERRLA Mouth exam: PRESENT: moist Neck exam: PRESENT: full ROM Respiratory exam: PRESENT: clear to auscultation rissa, symmetrical, unlabored Cardiovascular exam: PRESENT: RRR, +S1, +S2 Pulses: PRESENT: +2 pedal pulses bilateral GI/Abdominal exam: PRESENT: normal bowel sounds, soft, tenderness Extremities exam: PRESENT: full ROM Musculoskeletal exam: PRESENT: full ROM Neurological exam: PRESENT: alert, awake, oriented to person, oriented to place, oriented to time, oriented to situation Psychiatric exam: PRESENT: normal mood Skin exam: PRESENT: normal color Results Laboratory Results: 06/21/20 03:20 06/21/20 03:20 06/20/20 06/20/20 06/20/20 21:17 21:17 21:17 WBC 8.7 RBC 4.42 Hgb 13.2 Hct 39.1 MCV 88 MCH 29.8 MCHC 33.8 RDW 13.7 Plt Count 296 Seg Neutrophils % 68.3 Sodium 137.7 Potassium 3.7 Chloride 106 Carbon Dioxide 26 Anion Gap 6 BUN 14 Creatinine 0.97 Est GFR ( Amer) > 60 Glucose 97 Calcium 9.2 Total Bilirubin 0.8 AST 22 Alkaline Phosphatase 105 Total Protein 6.9 Albumin 3.9 Triglycerides Cholesterol LDL Cholesterol Direct VLDL Cholesterol HDL Cholesterol Lipase 72.8 TSH Urine Color Urine Appearance Urine pH Ur Specific [place] Urine Protein Urine Glucose (UA) Urine Ketones Urine Blood Urine Nitrite Ur Leukocyte Esterase 06/20/20 06/21/20 06/21/20 23:44 03:20 03:20 WBC 8.0 RBC 4.30 Hgb 13.1 Hct 38.0 MCV 88 MCH 30.4 MCHC 34.4 RDW 13.5 Plt Count 268 Seg Neutrophils % 70.1 Sodium 138.7 Potassium 3.7 Chloride 105 Carbon Dioxide 25 Anion Gap 9 BUN 16 Creatinine 0.86 Est GFR ( Amer) > 60 Glucose 98 Calcium 8.8 Total Bilirubin 0.9 AST 22 Alkaline Phosphatase 105 Total Protein 6.6 Albumin 3.7 Triglycerides 138 Cholesterol 206.08 H LDL Cholesterol Direct 143 H VLDL Cholesterol 28.0 HDL Cholesterol 48 Lipase TSH Urine Color COLORLESS Urine Appearance CLEAR Urine pH 7.0 Ur Specific [place] 1.005 Urine Protein NEGATIVE Urine Glucose (UA) NEGATIVE Urine Ketones NEGATIVE Urine Blood NEGATIVE Urine Nitrite NEGATIVE Ur Leukocyte Esterase NEGATIVE 06/21/20 03:20 WBC RBC Hgb Hct MCV MCH MCHC RDW Plt Count Seg Neutrophils % Sodium Potassium Chloride Carbon Dioxide Anion Gap BUN Creatinine Est GFR ( Amer) Glucose Calcium Total Bilirubin AST Alkaline Phosphatase Total Protein Albumin Triglycerides Cholesterol LDL Cholesterol Direct VLDL Cholesterol HDL Cholesterol Lipase TSH 5.62 H Urine Color Urine Appearance Urine pH Ur Specific [place] Urine Protein Urine Glucose (UA) Urine Ketones Urine Blood Urine Nitrite Ur Leukocyte Esterase 06/20/20 06/21/20 06/21/20 21:17 03:20 09:50 Troponin I < 0.012 < 0.012 < 0.012 NT-Pro-B Natriuret Pep 1400 H 06/21/20 15:23 Troponin I < 0.012 NT-Pro-B Natriuret Pep Impressions: Chest X-Ray 06/20/20 19:43 IMPRESSION: Interval reduction in lung volumes with development of interstitial infiltrate in the mid and lower lung zones. Chest/Abdomen CTA 06/21/20 00:00 IMPRESSION: Bilateral pneumonia. Bilateral pleural effusions. No aortic dissection or aneurysm. No pulmonary embolus. Venous Doppler Study 06/21/20 07:00 IMPRESSION: NO EVIDENCE DVT OR SVT IN EITHER LEG. Assessment and Plan - Diagnosis (1) New onset of congestive heart failure Is this a current diagnosis for this admission?: Yes Plan: - leg swelling and recent worsening dyspnea on exertion - BNP 1400 -Chest x-ray showing interval reduction in lung volumes with development of interstitial infiltrate in the mid and lower lung zone. -Echo showed mildly dilated left ventricle. Left ventricular systolic function is normal. EF 50 to 55%. Grade 2 out of 4 diastolic dysfunction. Moderate to severe mitral regurg, trace aortic insufficiency. Pulmonary pressure between 49 and 54. -Cardiology following awaiting final recommendations. -Continue lisinopril hydrochlorothiazide. -X-ray and CT chest findings likely related to pulmonary congestion secondary to moderate to severe MR or other than pneumonia since she is afebrile with normal white count and very minimal cough. Do not think she needs antibiotics. (2) Chest pain Qualifiers: Chest pain type: unspecified Qualified Code(s): R07.9 - Chest pain, unspecified Is this a current diagnosis for this admission?: Yes Plan: - Troponin negative - no PE on CT as well. - unlikely ACS related (3) Hypertension Qualifiers: Hypertension type: essential hypertension Qualified Code(s): I10 - Essential (primary) hypertension Is this a current diagnosis for this admission?: Yes Plan: resumed Lisinopril/HCTZ (4) Lower extremity edema Is this a current diagnosis for this admission?: Yes Plan: - grade 1 pitting edema - venous doppler negative for DVT - advised sara rush . (5) SOB (shortness of breath) Is this a current diagnosis for this admission?: Yes (6) Depression Qualifiers: Depression Type: unspecified Qualified Code(s): F32.9 - Major depressive disorder, single episode, unspecified Is this a current diagnosis for this admission?: Yes Plan: - denies SI - on celexa - Time Time Spent with patient: 25-34 minutes Medications reviewed and adjusted accordingly: Yes Anticipated Discharge Disposition: Home, Self Care Anticipated Discharge Timeframe: within 48 hours
[2020-06-21] MEDS: BUPROPION HCL 100 MG TABLET PO SCH (22:14)
[2020-06-22] MEDS: BUPROPION HCL 100 MG TABLET PO SCH (05:41)
[2020-06-22] MEDS ORDERED: PANTOPRAZOLE SODIUM 40 MG TABLET.DR PO SCH (06:00)
[2020-06-22 06:57] LABS: ABSOLUTE BASOPHILS # (AUTO) 0.1 10^3/uL (0.0-0.2); ABSOLUTE EOSINOPHILS # (AUTO) 0.2 10^3/uL (0.0-0.6); ABSOLUTE LYMPHOCYTES (AUTO) 1.7 10^3/uL (0.5-4.7); ABSOLUTE MONOCYTES (AUTO) 0.4 10^3/uL (0.1-1.4); ABSOLUTE NEUT (AUTO) 3.6 10^3/uL (1.7-8.2); BASOPHILS % (AUTO) 1.2 % (0-2); EOSINOPHILS % (AUTO) 2.6 % (0-6); HEMOGLOBIN 13.4 g/dL (12.0-15.5); LYMPHOCYTES % (AUTO) 28.7 % (13-45); MEAN CORPUSCULAR HEMOGLOBIN 30.2 pg (27.0-33.4); MEAN CORPUSCULAR HGB CONC 33.6 g/dL (32.0-36.0); MEAN CORPUSCULAR VOLUME 90 fl (80-97); MONOCYTES % (AUTO) 7.1 % (3-13); PLATELET COUNT 276 10^3/uL (150-450); RED BLOOD COUNT 4.46 10^6/uL (3.72-5.28); RED CELL DISTRIBUTION WIDTH 13.8 % (11.5-14.0); SEGMENTED NEUTROPHILS % (AUTO) 60.4 % (42-78); TOTAL CELLS COUNTED % (AUTO) 100 %
[2020-06-22 07:21] LABS: ALBUMIN 3.6 g/dL (3.5-5.0); ALKALINE PHOSPHATASE 102 U/L (38-126); ANION GAP 6 (5-19); ASPARTATE AMINO TRANSFERASE 22 U/L (14-36); BILIRUBIN,TOTAL 0.9 mg/dL (0.2-1.3); BLOOD UREA NITROGEN 19 mg/dL (7-20); CALCIUM 9.1 mg/dL (8.4-10.2); CARBON DIOXIDE 25 mmol/L (22-30); CHLORIDE 107 mmol/L (98-107); GLUCOSE 98 mg/dL (75-110); POTASSIUM 4.1 mmol/L (3.6-5.0); TOTAL PROTEIN 6.5 g/dL (6.3-8.2); TRIGLYCERIDES 134 mg/dL (<150)
[2020-06-22 07:31] LABS: DIRECT LDL 145 mg/dL (<100)
[2020-06-22] MEDS: ACETAMINOPHEN 325 MG TABLET PO PRN (07:59)
[2020-06-22] MEDS: ENOXAPARIN SODIUM INJ 40 MG/0.4 ML DISP.SYRIN SUBCUT SCH (09:33)
[2020-06-22] MEDS: LISINOPRIL 10 MG TABLET PO SCH (09:34)
--- NOTE | 2020-06-22 09:35 | PDOC PROGRESS REPORT ---
Subjective Date:: 06/22/20 Subjective:: SRIKANTH ZAPATA is a 54 year old female with history of hypertension, major depression, GERD, migraines, former smoker who quit 18 years ago and with family history of premature coronary artery disease in her father who had his first MS at age 40 years, in her brother who had his first MS at age 58 and in her sister who had a CVA at age 49 years who is consulted to our service for evaluation of possible heart failure. The patient had been in her usual state of health until 2 days ago when she noticed the sudden onset of shortness of breath while she was walking without any other associated symptoms. Her symptoms only lasted for approximately 1 minute and caused the patient to hyperventilate, her symptoms resolved spontaneously and she presented to our emergency room for further evaluation. She endorses lower extremity edema as well as intermittent chest pain localized to both the right side of the chest in the substernal area which she describes as a dull pressure, lasting anywhere from 20 to 30 seconds, recurs at random both at rest and during mild physical activities, without known triggers and not associated with shortness of breath, diaphoresis, palpitations, syncope and presyncope. She has a sedentary lifestyle. In the emergency room she received some IV Lasix for suspected heart failure given her abnormal BNP at 1400. Her chest x-ray demonstrated interstitial infiltrates and CT of the chest demonstrated bilateral pneumonia with pleural effusions. She had an uneventful night and feels improved this morning. She specifically denies chest pain, PND, orthopnea and shortness of breath. 06/22/2020: The patient had an uneventful night however she did have some orthopnea last night. Surprisingly enough, her echocardiogram demonstrated significant mitral valve disease (moderate to severe MR) among other findings which actually could be responsible for her clinical picture. Her telemetry continues to show normal sinus rhythm without ventricular dysrhythmias. Physical exam on 06/22/2020: GENERAL: Pleasant and conversational. Oriented x3 with normal mood. Not in acute distress. Well groomed and well developed. HEENT: Normocephalic, atraumatic. Pupils equal. Sclerae anicteric. Oropharynx moist. NECK: No JVD. No carotid bruits. LUNGS: Clear to auscultation bilaterally. Normal respiratory effort without the use of accessory muscles or intercostal retractions. CARDIOVASCULAR: Regular rate and rhythm, normal S1 and S2 without murmurs, rubs, or gallops. PMI not displaced. ABDOMEN: No masses or tenderness to palpation. No bruit. No splenomegaly or hepatomegaly. No abdominal aorta bruit noted. EXTREMITIES: Trace to 1+ pitting edema bilaterally, no cyanosis, no clubbing. +2 pulses femoral and pedal pulses bilaterally. SKIN: No lesions or rashes. MUSCULOSKELETAL: No chest tenderness to palpation. NEUROLOGIC: Nonfocal. No gross sensory or motor deficits bilateral upper or lower extremities. Cardiac studies: Echocardiogram on 06/21 at [facility]: -LV systolic function is normal. -EF 50 to 55%. -Grade 2 diastolic dysfunction. -Mild left ventricular enlargement. -Mild mitral valve prolapse. -Moderate to severe MR, trace AI, mild to moderate TR, trace PI. -Mild to moderate pulmonary hypertension. Reason For Visit: SHORTNESS OF BREATH,CHEST PAIN Physical Exam Vital Signs: Temp Pulse Resp BP Pulse Ox 97.7 F 69 16 116/77 98 06/22/20 03:36 06/22/20 03:36 06/22/20 03:36 06/22/20 03:36 06/22/20 03:36 Intake & Output 06/21/20 06/22/20 06/23/20 06:59 06:59 06:59 Intake Total 1352 Balance 1352 Weight 99.6 kg 100.4 kg Results Laboratory Results: 06/22/20 06:33 06/22/20 06:33 WBC 6.0 RBC 4.46 Hgb 13.4 Hct 40.0 MCV 90 MCH 30.2 MCHC 33.6 RDW 13.8 Plt Count 276 Seg Neutrophils % 60.4 06/20/20 06/21/20 06/21/20 21:17 03:20 09:50 Troponin I < 0.012 < 0.012 < 0.012 NT-Pro-B Natriuret Pep 1400 H 06/21/20 15:23 Troponin I < 0.012 NT-Pro-B Natriuret Pep Impressions: Chest X-Ray 06/20/20 19:43 IMPRESSION: Interval reduction in lung volumes with development of interstitial infiltrate in the mid and lower lung zones. Chest/Abdomen CTA 06/21/20 00:00 IMPRESSION: Bilateral pneumonia. Bilateral pleural effusions. No aortic dissection or aneurysm. No pulmonary embolus. Venous Doppler Study 06/21/20 07:00 IMPRESSION: NO EVIDENCE DVT OR SVT IN EITHER LEG. 06/22/20 06:33 06/22/20 06:33 MCV 90 fl (80-97) 06/22/20 06:33 MCH 30.2 pg (27.0-33.4) 06/22/20 06:33 MCHC 33.6 g/dL (32.0-36.0) 06/22/20 06:33 RDW 13.8 % (11.5-14.0) 06/22/20 06:33 Seg Neutrophils % 60.4 % (42-78) 06/22/20 06:33 Chloride 107 mmol/L (98-107) 06/22/20 06:33 Carbon Dioxide 25 mmol/L (22-30) 06/22/20 06:33 Anion Gap 6 (5-19) 06/22/20 06:33 Est GFR ( Amer) > 60 (>60) 06/22/20 06:33 Glucose 98 mg/dL (75-110) 06/22/20 06:33 Calcium 9.1 mg/dL (8.4-10.2) 06/22/20 06:33 Total Bilirubin 0.9 mg/dL (0.2-1.3) 06/22/20 06:33 AST 22 U/L (14-36) 06/22/20 06:33 Alkaline Phosphatase 102 U/L (38-126) 06/22/20 06:33 Total Protein 6.5 g/dL (6.3-8.2) 06/22/20 06:33 Albumin 3.6 g/dL (3.5-5.0) 06/22/20 06:33 Triglycerides 134 mg/dL (<150) 06/22/20 06:33 Cholesterol 206.10 mg/dL (0-200) H 06/22/20 06:33 LDL Cholesterol Direct 145 mg/dL (<100) H 06/22/20 06:33 VLDL Cholesterol 27.0 mg/dL (10-31) 06/22/20 06:33 HDL Cholesterol 46 mg/dL (>40) 06/22/20 06:33 Lipase 72.8 U/L (23-300) 06/20/20 21:17 TSH 2.49 uIU/mL (0.47-4.68) 06/22/20 06:33 Urine Color COLORLESS 06/20/20 23:44 Urine Appearance CLEAR 06/20/20 23:44 Urine pH 7.0 (5.0-9.0) 06/20/20 23:44 Ur Specific [place] 1.005 06/20/20 23:44 Urine Protein NEGATIVE mg/dL (NEGATIVE) 06/20/20 23:44 Urine Glucose (UA) NEGATIVE mg/dL (NEGATIVE) 06/20/20 23:44 Urine Ketones NEGATIVE mg/dL (NEGATIVE) 06/20/20 23:44 Urine Blood NEGATIVE (NEGATIVE) 06/20/20 23:44 Urine Nitrite NEGATIVE (NEGATIVE) 06/20/20 23:44 Ur Leukocyte Esterase NEGATIVE (NEGATIVE) 06/20/20 23:44 06/20/20 06/21/20 06/21/20 21:17 03:20 09:50 Troponin I < 0.012 < 0.012 < 0.012 NT-Pro-B Natriuret Pep 1400 H 06/21/20 15:23 Troponin I < 0.012 NT-Pro-B Natriuret Pep Current Medication List Generic Name Dose Route Start Last Admin Trade Name Freq PRN Reason Stop Dose Admin Acetaminophen 650 mg 06/21/20 01:57 06/22/20 07:59 Acetaminophen 325 Mg Tablet PO 07/21/20 01:56 650 mg Q4HP PRN Administration FOR PAIN OR TEMP Aripiprazole 20 mg 06/22/20 10:00 Aripiprazole 5 Mg Tablet PO 07/22/20 09:59 DAILY SHIRLEY Bupropion HCl 100 mg 06/21/20 22:00 06/22/20 05:41 Bupropion Hcl 100 Mg Tablet PO 07/21/20 21:59 100 mg Q8 SHIRLEY Administration Enoxaparin Sodium 40 mg 06/21/20 10:00 06/21/20 09:01 Enoxaparin Sodium Inj 40 Mg/0.4 Ml Disp.Syrin SUBCUT 07/21/20 09:59 40 mg DAILY SHIRLEY Administration Furosemide 20 mg 06/22/20 10:00 Furosemide Inj/Pf 20 Mg/2 Ml Sdv IV 06/22/20 10:01 NOW ONE Furosemide 40 mg 06/23/20 10:00 Furosemide 40 Mg Tablet PO 07/23/20 09:59 DAILY SHIRLEY Gabapentin 300 mg 06/22/20 10:00 Gabapentin 300 Mg Capsule PO 07/22/20 09:59 BID SHIRLEY Lisinopril 20 mg 06/21/20 10:00 06/21/20 09:00 Lisinopril 10 Mg Tablet PO 07/21/20 09:59 20 mg DAILY SHIRLEY Administration Lisinopril 20 mg 06/22/20 10:00 Lisinopril 10 Mg Tablet PO 07/22/20 09:59 DAILY SHIRLEY Lorazepam 0.5 mg 06/21/20 21:41 Lorazepam 0.5 Mg Tablet PO 06/28/20 21:40 DAILYP PRN FOR ANXIETY Melatonin 10 mg 06/21/20 18:27 06/21/20 20:59 Melatonin 5 Mg Tablet PO 07/21/20 18:26 10 mg HSP PRN Administration FOR SLEEP Pantoprazole Sodium 40 mg 06/22/20 06:00 06/22/20 05:41 Pantoprazole Sodium 40 Mg Tablet.Dr PO 07/22/20 05:59 40 mg Q6AM SHIRLEY Administration Sodium Chloride 2.5 ml 06/21/20 06:00 06/22/20 05:41 Normal Saline Flush 2.5 Ml Disp.Syrin IV 07/21/20 05:59 2.5 ml Q8 SHIRLEY Administration Discontinued Medications Generic Name Dose Route Start Last Admin Trade Name Freq PRN Reason Stop Dose Admin Furosemide 20 mg 06/20/20 23:00 06/20/20 23:07 Furosemide Inj/Pf 20 Mg/2 Ml Sdv IV 06/20/20 23:01 20 mg NOW ONE Administration Hydrochlorothiazide 12.5 mg 06/22/20 10:00 Hydrochlorothiazide 12.5 Mg Tablet PO 07/22/20 09:59 DAILY SHIRLEY Ketorolac Tromethamine 15 mg 06/20/20 22:04 06/20/20 22:22 Ketorolac Tromethamine Inj/Pf 30 Mg/1 Ml Sdv IV 06/20/20 22:05 Not Given NOW ONE Assessment & Plan - Diagnosis (1) New onset of congestive heart failure Is this a current diagnosis for this admission?: Yes Plan: The patient has had confusing presentation with symptoms that could be explained by both new onset heart failure versus pneumonia. At this point, and in view of her echocardiogram results as well as lack of infectious symptoms, it is most likely that she had very early signs of fluid overload/heart failure that is likely secondary to her mitral valve disease. The patient did experience some orthopnea last night therefore we will start diuresis. Her blood pressure is at goal. I had a long discussion with the patient regarding the pathophysiology of heart failure and the importance of daily weights and to call her physician immediately if weight gain of 3 pounds overnight and/or 5 pounds in 1 week. She was instructed on low-sodium diet. Recommendations: -Continue with ANTHONY inhibitor at current doses. -Lasix 20 mg IV x1 now please. -Discontinue HCTZ and start Lasix 40 mg p.o. daily. -Replace electrolytes as needed. -Start Toprol 12.5 mg daily. (2) Chest pain Qualifiers: Chest pain type: unspecified Qualified Code(s): R07.9 - Chest pain, unspecified Is this a current diagnosis for this admission?: Yes Plan: The patient has very nonspecific and atypical chest pain lasting seconds at a time however her family history is very impressive for ischemic cardiovascular disease as described above. She ruled out for acute coronary syndrome/MS with 2 sets of cardiac troponins. Recommendations: -We will consider outpatient stress test once her mitral valve disease is addressed. -Primary prevention measures. (3) Hypertension Qualifiers: Hypertension type: essential hypertension Qualified Code(s): I10 - Essential (primary) hypertension Is this a current diagnosis for this admission?: Yes Plan: Her blood pressure is at her goal of 130/80. I will defer further management to the hospitalist team. (4) Mitral regurgitation Qualifiers: Cardiac valve disease etiology: etiology unspecified Qualified Code(s): I34.0 - Nonrheumatic mitral (valve) insufficiency Is this a current diagnosis for this admission?: Yes Plan: Surprisingly enough, the patient was found to have at least moderate to severe MR even though I believe is more severe than moderate given her left ventricular dilatation and left ventricular systolic function on the low side even though still normal. Given her presentation with early heart failure, pulmonary hypertension and other findings both on physical exam and echocardiography, the patient will require further assessment of her mitral valve with transesophageal echocardiography to better assess mitral valve regurgitation and structural deficiencies. I am awaiting a call from Dr. Martir Rodrigez from [facility] to schedule the patient for transesophageal echocardiography sooner rather than later. I will arrange for outpatient cardiac follow-up in the office within 1 week of discharge.
[2020-06-22] MEDS ORDERED: ARIPIPRAZOLE 20 MG PO SCH (10:00)
[2020-06-22] MEDS ORDERED: ARIPIPRAZOLE 5 MG TABLET PO SCH (10:00)
[2020-06-22] MEDS ORDERED: (PENDING PHARMACY ID) (Bupropion Hcl [Bupropion Xl] 150 MG Tab.Er.24h) PO SCH (10:00)
[2020-06-22] MEDS ORDERED: HYDROCHLOROTHIAZIDE 12.5 MG TABLET PO SCH (10:00)
[2020-06-22] MEDS ORDERED: LISINOPRIL 10 MG TABLET PO SCH (10:00)
[2020-06-22] MEDS ORDERED: FUROSEMIDE INJ/PF 20 MG/2 ML SDV IV ONE (10:00)
[2020-06-22] MEDS ORDERED: GABAPENTIN 300 MG CAPSULE PO SCH (10:00)
[2020-06-22] MEDS ORDERED: (PENDING PHARMACY ID) (Lisinopril/Hydrochlorothiazide [Lisinopril-Hctz 20-12.5 Mg Tab] 1 E PO SCH (10:00)
--- NOTE | 2020-06-22 12:41 | PDOC DISCHARGE SUMMARY ---
Impression - Admit/DC Date/PCP Admission Date/Primary Care Provider: 06/20/20 23:[facility] Discharge Date: 06/22/20 - Discharge Diagnosis (1) New onset of congestive heart failure Is this a current diagnosis for this admission?: Yes (2) Severe mitral regurgitation Is this a current diagnosis for this admission?: Yes (3) Depression Is this a current diagnosis for this admission?: Yes (4) Hypertension Is this a current diagnosis for this admission?: Yes (5) SOB (shortness of breath) Is this a current diagnosis for this admission?: Yes - Additional Information Discharge Diet: Cardiac Discharge Activity: Slowly Increase Activity Referrals: SHARRI OLIVO MD [NO LOCAL MD] - [facility] [Primary Care Provider] - 07/03/20 9:30 am (TELEPHONE APPOINTMENT.) Prescriptions: Furosemide [Lasix 40 mg Tablet] 40 mg PO DAILY #30 tablet Lisinopril 20 mg PO DAILY #30 tablet Home Medications: Aripiprazole [Abilify] 20 mg PO DAILY 06/21/20 Bupropion HCl [Bupropion Xl] 300 mg PO DAILY 06/21/20 Dextroamphetamine/Amphetamine [Dextroamp-Amphet ER 20 mg Cap] 1 cap.sr PO QAM 06/21/20 Dextroamphetamine/Amphetamine [Dextroamp-Amphetamin 20 mg Tab] 10 mg PO DAILY@1300 06/21/20 Gabapentin [Neurontin 300 mg Capsule] 300 mg PO BID 06/21/20 Lorazepam [Ativan 0.5 mg Tablet] 0.5 mg PO DAILYP PRN 06/21/20 Pantoprazole Sodium [Protonix [address] Tablet] 40 mg PO QAM 06/21/20 Zolpidem Tartrate [Ambien 5 mg Tablet] 5 mg PO HSP PRN 06/21/20 Furosemide [Lasix 40 mg Tablet] 40 mg PO DAILY #30 tablet 06/22/20 Lisinopril 20 mg PO DAILY #30 tablet 06/22/20 History of Present Illiness History of Present Illness: According to admitting provider: SRIKANTH ZAPATA is a 54 year old female For the last 2 days she noticed some exertional shortness of breath, intermittent chest pain. She had right-sided chest pain which was sharp, worse with taking a deep breath or moving around. She had some left-sided chest pain which was more pressure type. She noticed some swelling of her legs, it was symmetric. She had no fever. No coughing. In the emergency department it was felt that she may have congestive heart failure. Dr. Guo was called by the emergency department provider. He is going to see the patient tomorrow for consultation. When I arrived to see the patient he appeared to be comfortable. Prior to my arrival she received 20 mg of intravenous furosemide. She was hemodynamically stable. She had a good oxygen saturation in the high 90s on room air. She did not appear to be in distress. She complained about some mild intermittent right-sided sharp chest pain. She had no shortness of breath. Hospital Course Hospital Course: Patient presented to the hospital with shortness of breath and significant dyspnea on exertion and orthopnea. On presentation, CTA chest was performed which showed no evidence of PE but showed bilateral opacities. Patient's BNP also noted to be quite elevated. CBC showed no evidence of leukocytosis. Troponins were measured 4 times which were all negative. Covid test was negative. Patient's constellation of symptoms was consistent with acute diastolic congestive heart failure. This is a new diagnosis for patient. Patient received some IV Lasix. Echocardiogram was obtained which revealed diastolic dysfunction as well as moderate to severe mitral regurgitation with moderate pulmonary hypertension by echo. Patient has been evaluated by plush cutter who recommends discharge on Lasix 40 mg daily and that he was set patient up to have a ARAM as outpatient as well as for the evaluation as outpatient and consideration for valve replacement/repair as [facility]. Physical Exam Vital Signs: Temp Pulse Resp BP Pulse Ox 97.7 F 75 15 146/88 H 100 06/22/20 07:49 06/22/20 07:40 06/22/20 07:40 06/22/20 07:40 06/22/20 07:40 Intake & Output 06/21/20 06/22/20 06/23/20 06:59 06:59 06:59 Intake Total 1352 Balance 1352 Weight 99.6 kg 100.4 kg General appearance: PRESENT: no acute distress, cooperative Neck exam: ABSENT: JVD Respiratory exam: PRESENT: clear to auscultation rissa, unlabored. ABSENT: accessory muscle use Cardiovascular exam: PRESENT: +S1, +S2. ABSENT: tachycardia GI/Abdominal exam: PRESENT: soft. ABSENT: tenderness Extremities exam: PRESENT: pedal edema, +1 edema Neurological exam: PRESENT: alert, awake Results Laboratory Results: WBC 6.0 10^3/uL (4.0-10.5) 06/22/20 06:33 RBC 4.46 10^6/uL (3.72-5.28) 06/22/20 06:33 Hgb 13.4 g/dL (12.0-15.5) 06/22/20 06:33 Hct 40.0 % (36.0-47.0) 06/22/20 06:33 MCV 90 fl (80-97) 06/22/20 06:33 MCH 30.2 pg (27.0-33.4) 06/22/20 06:33 MCHC 33.6 g/dL (32.0-36.0) 06/22/20 06:33 RDW 13.8 % (11.5-14.0) 06/22/20 06:33 Plt Count 276 10^3/uL (150-450) 06/22/20 06:33 Lymph % (Auto) 28.7 % (13-45) 06/22/20 06:33 Whitley % (Auto) 7.1 % (3-13) 06/22/20 06:33 Eos % (Auto) 2.6 % (0-6) 06/22/20 06:33 Baso % (Auto) 1.2 % (0-2) 06/22/20 06:33 Absolute Neuts (auto) 3.6 10^3/uL (1.7-8.2) 06/22/20 06:33 Absolute Lymphs (auto) 1.7 10^3/uL (0.5-4.7) 06/22/20 06:33 Absolute Monos (auto) 0.4 10^3/uL (0.1-1.4) 06/22/20 06:33 Absolute Eos (auto) 0.2 10^3/uL (0.0-0.6) 06/22/20 06:33 Absolute Basos (auto) 0.1 10^3/uL (0.0-0.2) 06/22/20 06:33 Seg Neutrophils % 60.4 % (42-78) 06/22/20 06:33 D-Dimer 1.19 ug/mL (0.00-0.50) H 06/20/20 21:17 Sodium 137.8 mmol/L (137-145) 06/22/20 06:33 Potassium 4.1 mmol/L (3.6-5.0) 06/22/20 06:33 Chloride 107 mmol/L (98-107) 06/22/20 06:33 Carbon Dioxide 25 mmol/L (22-30) 06/22/20 06:33 Anion Gap 6 (5-19) 06/22/20 06:33 BUN 19 mg/dL (7-20) 06/22/20 06:33 Creatinine 0.92 mg/dL (0.52-1.25) 06/22/20 06:33 Est GFR ( Amer) > 60 (>60) 06/22/20 06:33 Est GFR (MDRD) Non-Af > 60 (>60) 06/22/20 06:33 Glucose 98 mg/dL (75-110) 06/22/20 06:33 Hemoglobin A1c % 4.4 % (4.7-6.0) L 06/22/20 06:33 Calcium 9.1 mg/dL (8.4-10.2) 06/22/20 06:33 Total Bilirubin 0.9 mg/dL (0.2-1.3) 06/22/20 06:33 Direct Bilirubin 0.0 mg/dL (0.0-0.4) 06/22/20 06:33 Neonat Total Bilirubin Not Reportable 06/22/20 06:33 Neonat Direct Bilirubin Not Reportable 06/22/20 06:33 Neonat Indirect Bili Not Reportable 06/22/20 06:33 AST 22 U/L (14-36) 06/22/20 06:33 ALT 22 U/L (<35) 06/22/20 06:33 Alkaline Phosphatase 102 U/L (38-126) 06/22/20 06:33 Troponin I < 0.012 ng/mL 06/21/20 15:23 NT-Pro-B Natriuret Pep 1400 pg/mL (<125) H 06/20/20 21:17 Total Protein 6.5 g/dL (6.3-8.2) 06/22/20 06:33 Albumin 3.6 g/dL (3.5-5.0) 06/22/20 06:33 Triglycerides 134 mg/dL (<150) 06/22/20 06:33 Cholesterol 206.10 mg/dL (0-200) H 06/22/20 06:33 LDL Cholesterol Direct 145 mg/dL (<100) H 06/22/20 06:33 VLDL Cholesterol 27.0 mg/dL (10-31) 06/22/20 06:33 HDL Cholesterol 46 mg/dL (>40) 06/22/20 06:33 Lipase 72.8 U/L (23-300) 06/20/20 21:17 TSH 2.49 uIU/mL (0.47-4.68) 06/22/20 06:33 Urine Color COLORLESS 06/20/20 23:44 Urine Appearance CLEAR 06/20/20 23:44 Urine pH 7.0 (5.0-9.0) 06/20/20 23:44 Ur Specific [place] 1.005 06/20/20 23:44 Urine Protein NEGATIVE mg/dL (NEGATIVE) 06/20/20 23:44 Urine Glucose (UA) NEGATIVE mg/dL (NEGATIVE) 06/20/20 23:44 Urine Ketones NEGATIVE mg/dL (NEGATIVE) 06/20/20 23:44 Urine Blood NEGATIVE (NEGATIVE) 06/20/20 23:44 Urine Nitrite NEGATIVE (NEGATIVE) 06/20/20 23:44 Urine Bilirubin NEGATIVE (NEGATIVE) 06/20/20 23:44 Urine Urobilinogen NEGATIVE mg/dL (<2.0) 06/20/20 23:44 Ur Leukocyte Esterase NEGATIVE (NEGATIVE) 06/20/20 23:44 Squamous Epi Cells Auto 1 /HPF 06/20/20 23:44 Urine Mucus (Auto) RARE /LPF 06/20/20 23:44 Urine Ascorbic Acid NEGATIVE (NEGATIVE) 06/20/20 23:44 Influenza A (RT-PCR) NEGATIVE (NEGATIVE) 06/21/20 02:27 Influenza B (RT-PCR) NEGATIVE (NEGATIVE) 06/21/20 02:27 RSV (RT-PCR) NEGATIVE (NEGATIVE) 06/21/20 02:27 SARS-CoV-2 Rap RNA(RT-PCR) NEGATIVE (NEGATIVE) 06/21/20 02:27 06/20/20 06/21/20 06/21/20 21:17 03:20 09:50 Troponin I < 0.012 < 0.012 < 0.012 NT-Pro-B Natriuret Pep 1400 H 06/21/20 15:23 Troponin I < 0.012 NT-Pro-B Natriuret Pep Impressions: Chest X-Ray 06/20/20 19:43 IMPRESSION: Interval reduction in lung volumes with development of interstitial infiltrate in the mid and lower lung zones. Chest/Abdomen CTA 06/21/20 00:00 IMPRESSION: Bilateral pneumonia. Bilateral pleural effusions. No aortic dissection or aneurysm. No pulmonary embolus. Venous Doppler Study 06/21/20 07:00 IMPRESSION: NO EVIDENCE DVT OR SVT IN EITHER LEG. Plan Time Spent: Greater than 30 Minutes Stroke Is this a Stroke Patient?: No Acute Heart Failure Is this a Heart Failure Patient?: No
[2020-06-22 12:48] VITALS: BP 116/77
--- NOTE | 2020-06-22 13:43 | EKG REPORT ---
SEVERITY:- ABNORMAL ECG - SINUS RHYTHM PROBABLE LEFT ATRIAL ABNORMALITY NONSPECIFIC T ABNORMALITIES, ANT-LAT LEADS VS LVH : Confirmed by: Beronica Julien 22-Jun-2020 13:42:50
--- NOTE | 2020-06-22 13:43 | EKG REPORT ---
SEVERITY:- ABNORMAL ECG - SINUS RHYTHM PROBABLE LEFT ATRIAL ABNORMALITY REPOL ABNRM SUGGESTS ISCHEMIA, ANT-LAT LEADS VS LVH BORDERLINE PROLONGED QT INTERVAL : Confirmed by: Beronica Julien 22-Jun-2020 13:42:32
--- NOTE | 2020-06-22 13:43 | EKG REPORT ---
SEVERITY:- ABNORMAL ECG - SINUS RHYTHM BORDERLINE LEFT AXIS DEVIATION ABNORMAL T, CONSIDER ISCHEMIA, LATERAL LEADS VS LVH : Confirmed by: Beronica Julien 22-Jun-2020 13:42:14
[2020-06-23] MEDS ORDERED: FUROSEMIDE 40 MG TABLET PO SCH (10:00)
== END 2020-06-22 15:30 | disposition home or self-care (01) | DRG 291 ==
LOC: ER 19:29 → EH 23:19 → 5 06-21 01:30
PROVIDERS: ADMIT Internal Medicine; ATTEND Internal Medicine
DX: I11.0 Hypertensive heart disease with heart failure (principal); I50.31 Acute diastolic (congestive) heart failure; K21.9 Gastro-esophageal reflux disease without esophagitis; F41.9 Anxiety disorder, unspecified; F32.9 Major depressive disorder, single episode, unspecified; I34.0 Nonrheumatic mitral (valve) insufficiency; I27.20 Pulmonary hypertension, unspecified; Z79.899 Other long term (current) drug therapy; Z20.828 Contact with and (suspected) exposure to other viral communicable diseases; Z87.891 Personal history of nicotine dependence; Z82.49 Family history of ischemic heart disease and other diseases of the circulatory system
CPT/HCPCS: 36415; 71045; 71275; 80053; 80061; 81001; 83036; 83690; 83880; 84443; 84484; 85025; 85379; 93005; 93010; 93306; 93970; 96374; 99285; 0241U; C9803; J1650; J1940; J3490

== ENCOUNTER 2020-08-03 10:20 | Emergency (ER) | payer BC, OTHER ==
--- NOTE | 2020-08-03 10:40 | ER Document Report ---
ED Medical Screen (RME) - General Chief Complaint: Chest Tightness Stated Complaint: ELEVATED HEART RATE,CHEST TIGHTNESS Time Seen by Provider: 08/03/20 10:36 Primary Care Provider: ROYA MURILLO MD [Primary Care Provider] - Follow up as needed Notes: Patient was in cardiac rehab on exercise equipment and started to develop increased heart rate, dizziness shortness of breath with chest pain. Patient states now all she has is tightness in the chest with some nausea. Patient does have a history of hypertension, mitral valve regurgitation and congestive heart failure. I have greeted and performed a rapid initial assessment of this patient. A comprehensive ED assessment and evaluation of the patient, analysis of test results and completion of the medical decision making process will be conducted by additional ED providers. TRAVEL OUTSIDE OF THE [place] IN LAST 30 DAYS: No - Related Data Allergies/Adverse Reactions: No Known Allergies Allergy (Verified 06/20/20 21:22) Past Medical History - Past Medical History Cardiac Medical History: Reports: Hx Hypertension Denies: Hx Coronary Artery Disease, Hx Heart Attack Pulmonary Medical History: Denies: Hx Asthma, Hx Bronchitis, Hx COPD, Hx Pneumonia Neurological Medical History: Denies: Hx Cerebrovascular Accident, Hx Seizures Renal/ Medical History: Denies: Hx Peritoneal Dialysis GI Medical History: Reports: Hx Gastroesophageal Reflux Disease Musculoskeltal Medical History: Denies Hx Arthritis Psychiatric Medical History: Reports: Hx Anxiety, Hx Depression Past Surgical History: Reports: Hx Appendectomy, Hx Hysterectomy, Hx Tubal Ligation - Immunizations Immunizations up to date: No Hx Diphtheria, Pertussis, Tetanus Vaccination: Yes Physical Exam - Vital signs Vitals: Temp Pulse Resp BP Pulse Ox 98.7 F 106 H 16 117/91 H 100 08/03/20 10:29 08/03/20 10:08/03/20 10:08/03/20 10:29 08/03/20 10:29 - General General appearance: Alert, Anxious Notes: Tachycardia Course - Vital Signs Vital signs: Temp Pulse Resp BP Pulse Ox 98.7 F 106 H 16 117/91 H 100 08/03/20 10:29 08/03/20 10:29 08/03/20 10:29 08/03/20 10:08/03/20 10:29 Doctor's Discharge - Discharge Referrals: ROYA MURILLO MD [Primary Care Provider] - Follow up as needed
--- NOTE | 2020-08-03 11:11 | ER Document Report ---
ED Cardiac - General Chief Complaint: Chest Tightness Stated Complaint: ELEVATED HEART RATE,CHEST TIGHTNESS Time Seen by Provider: 08/03/20 10:36 Primary Care Provider: ROYA MURILLO MD [Primary Care Provider] - Follow up as needed Notes: CHIEF COMPLAINT: Tachycardia and nausea at cardiac rehab HPI: 54-year-old female who follows with Dr. Smith at [facility] cardiology presenting for evaluation of an episode of tachycardia with some nausea and shortness of breath while she was working out at cardiac rehab. Patient states when she rested her heart rate did go back down she is to report slight nausea. Patient states that she did had been evaluated at [facility] for transthoracic echocardiogram and angiogram. Was told that she did not need stents does not have a cuff at the time. Patient states that she had an episode of elevated heart rate without the nausea earlier in the week. Patient denies other complaints at this time ROS: See HPI - all other systems were reviewed and are otherwise negative Constitutional: no fever Eyes: no drainage, no blurred vision ENT: no runny nose, no sore throat Cardiovascular: + chest pain, positive tachycardia Resp: + SOB, no cough GI: no vomiting, no diarrhea, no abdominal pain, positive nausea : no dysuria Integumentary: no rash Allergy: no hives Musculoskeletal: no extremity pain or swelling Neurological: no numbness/tingling, no weakness MEDICATIONS: I agree with the patient medications as charted by the RN. ALLERGIES: I agree with the allergies as charted by the RN. PAST MEDICAL HISTORY/PAST SURGICAL HISTORY: Reviewed and agree as charted by RN. SOCIAL HISTORY: Reviewed and agree as charted by RN. FAMILY HISTORY: No significant familial comorbid conditions directly related to patient complaint EXAM: Reviewed vital signs as charted by RN. CONSTITUTIONAL: Alert and oriented and responds appropriately to questions. Well-appearing; well-nourished HEAD: Normocephalic; atraumatic EYES: PERRL; Conjunctivae clear, sclerae non-icteric ENT: normal nose; no rhinorrhea; moist mucous membranes; pharynx without lesions noted, no uvula edema or deviation, no tonsillar hypertrophy, phonation normal NECK: Supple without meningismus; non-tender; no cervical lymphadenopathy, no masses CARD: Mild tachycardia; no murmurs, no clicks, no rubs, no gallops; symmetric distal pulses RESP: Normal chest excursion without splinting or tachypnea; breath sounds clear and equal bilaterally; no wheezes, no rhonchi, no rales, pulse oximetry 97% on room air not hypoxic ABD/GI: Normal bowel sounds; non-distended; soft, non-tender, no rebound, no guarding; no palpable organomegaly or masses. BACK: The back appears normal and is non-tender to palpation, there is no CVA tenderness EXT: Normal ROM in all joints; non-tender to palpation; no cyanosis, no effusions, no edema SKIN: Normal color for age and race; warm; dry; good turgor; no acute lesions noted NEURO: Moves all extremities equally; Motor and sensory function intact PSYCH: The patient's mood and manner are appropriate. Grooming and personal hygiene are appropriate. MDM: EKG sinus tachycardia with a ventricular rate of 110, ND 180, QT 332, QTc 450. Nonspecific T wave flattening in the lateral leads. Interpreted by emergency department physician. No change from EKG June 22, 2020. 54-year-old female with cardiomyopathy who follows at [facility] with Dr. Smith presenting for an episode of tachycardia with some nausea and shortness of breath while at cardiac rehab. She had been on the elliptical in the treadmill and was then lifting weights. States she still has slight nausea no chest pain. States she is awaiting whether she may need an AICD. Will obtain initial screening cardiac labs, likely discussed with her cardiology group regarding management TRAVEL OUTSIDE OF THE [place] IN LAST 30 DAYS: No - Related Data Allergies/Adverse Reactions: No Known Allergies Allergy (Verified 06/20/20 21:22) Past Medical History - Social History Smoking Status: Never Smoker Family History: CAD, CVA - Past Medical History Cardiac Medical History: Reports: Hx Hypertension Denies: Hx Coronary Artery Disease, Hx Heart Attack Pulmonary Medical History: Denies: Hx Asthma, Hx Bronchitis, Hx COPD, Hx Pneumonia Neurological Medical History: Denies: Hx Cerebrovascular Accident, Hx Seizures Renal/ Medical History: Denies: Hx Peritoneal Dialysis GI Medical History: Reports: Hx Gastroesophageal Reflux Disease Musculoskeletal Medical History: Denies Hx Arthritis Psychiatric Medical History: Reports: Hx Anxiety, Hx Depression Past Surgical History: Reports: Hx Appendectomy, Hx Hysterectomy, Hx Tubal Ligation - Immunizations Immunizations up to date: No Hx Diphtheria, Pertussis, Tetanus Vaccination: Yes Physical Exam - Vital signs Vitals: Temp Pulse Resp BP Pulse Ox 98.7 F 106 H 16 117/91 H 100 08/03/20 10:29 08/03/20 10:29 08/03/20 10:29 08/03/20 10:29 08/03/20 10:29 Course - Re-evaluation Re-evalutation: 08/03/20 12:34 spoke with Counts include [facility] beds at the [facility]. Zeinab Jordan on for Cardiology. We will have her call me back to discuss the patient 08/03/20 12:53 Spoke with a nurse practitioner for the cardiology service at [facility]. We discussed the patient's evaluation. They did offer to have the patient go over to the [place] office to have a Holter monitor type patch placed and the patient after I discussed this with her declines. They believe that patient may still go to cardiac rehab limited weight lifting though. Patient apparently had a catheterization on June 28 that was without significant abnormalities. They believe the patient can be discharged at this time and they will follow the patient up in the office patient is agreeable to this plan. They do feel that 1 set of cardiac markers are sufficient given her recent work-ups - Vital Signs Vital signs: Temp Pulse Resp BP Pulse Ox 98.6 F 106 H 25 H 115/89 H 98 08/03/20 12:01 08/03/20 10:29 08/03/20 12:01 08/03/20 12:01 08/03/20 12:01 - Laboratory Results Result Diagrams: 08/03/20 11:13 08/03/20 11:13 Laboratory Results Interpreted: 08/03/20 11:13 BUN 22 H Creatinine 1.46 H Est GFR ( Amer) 45 L Est GFR (MDRD) Non-Af 37 L Alkaline Phosphatase 127 H Total Protein 8.5 H Critical Laboratory Results Reviewed: No Critical Results - Radiology Results Critical Radiology Results Reviewed: No Critical Results Discharge - Discharge Clinical Impression: Tachycardia Condition: Stable Disposition: HOME, SELF-CARE Additional Instructions: Follow-up with your psychological assistant at [facility] by phone on Thursday. You may continue with cardiac rehab but no weight lifting until cleared by cardiology. If you have any recurrent symptoms please return for reevaluation. Referrals: ROYA MURILLO MD [Primary Care Provider] - Follow up as needed
--- NOTE | 2020-08-03 11:24 | RADIOLOGY REPORT (SQ) ---
EXAM DESCRIPTION: CHEST SINGLE VIEW IMAGES COMPLETED DATE/TIME: 08/03/2020 10:04 am REASON FOR STUDY: jett [email or web address] COMPARISON: 06/20/2020 EXAM PARAMETERS: NUMBER OF VIEWS: One view. TECHNIQUE: Single frontal radiographic view of the chest acquired. RADIATION DOSE: NA LIMITATIONS: None. FINDINGS: LUNGS AND PLEURA: Improved aeration in both lungs. No focal consolidation or pleural effu nava. No pneumothorax. MEDIASTINUM AND HILAR STRUCTURES: No masses. Contour normal. HEART AND VASCULAR STRUCTURES: Heart normal in size. Normal vasculature. BONES: No acute findings. HARDWARE: None in the chest. OTHER: No other significant finding. IMPRESSION: NO ACUTE RADIOGRAPHIC FINDING IN THE CHEST. TECHNICAL DOCUMENTATION: JOB ID: [id number] 2010 [employer]- All Rights Reserved Reading location - IP/workstation name: [email or web address]
[2020-08-03 11:40] LABS: ABSOLUTE BASOPHILS # (AUTO) 0.1 10^3/uL (0.0-0.2); ABSOLUTE EOSINOPHILS # (AUTO) 0.1 10^3/uL (0.0-0.6); ABSOLUTE MONOCYTES (AUTO) 0.5 10^3/uL (0.1-1.4); ABSOLUTE NEUT (AUTO) 5.1 10^3/uL (1.7-8.2); BASOPHILS % (AUTO) 0.7 % (0-2); HEMOGLOBIN 15.5 g/dL (12.0-15.5); LYMPHOCYTES % (AUTO) 26.2 % (13-45); MEAN CORPUSCULAR HEMOGLOBIN 30.5 pg (27.0-33.4); MEAN CORPUSCULAR HGB CONC 35.3 g/dL (32.0-36.0); MEAN CORPUSCULAR VOLUME 87 fl (80-97); MONOCYTES % (AUTO) 6.3 % (3-13); PLATELET COUNT 340 10^3/uL (150-450); RED BLOOD COUNT 5.09 10^6/uL (3.72-5.28); SEGMENTED NEUTROPHILS % (AUTO) 65.8 % (42-78); TOTAL CELLS COUNTED % (AUTO) 100 %; WHITE BLOOD COUNT 7.8 10^3/uL (4.0-10.5)
[2020-08-03 12:06] LABS: ALBUMIN 4.9 g/dL (3.5-5.0); ALKALINE PHOSPHATASE 127 U/L (38-126); ANION GAP 13 (5-19); ASPARTATE AMINO TRANSFERASE 23 U/L (14-36); BILIRUBIN,DIRECT 0.2 mg/dL (0.0-0.4); BLOOD UREA NITROGEN 22 mg/dL (7-20); CARBON DIOXIDE 25 mmol/L (22-30); CHLORIDE 102 mmol/L (98-107); GLUCOSE 95 mg/dL (75-110); POTASSIUM 4.2 mmol/L (3.6-5.0); TOTAL PROTEIN 8.5 g/dL (6.3-8.2)
[2020-08-03 12:13] LABS: NT PRO BNP 41 pg/mL (<125)
[2020-08-03 12:15] LABS: TROPONIN I < 0.012 ng/mL
[2020-08-03 13:24] VITALS: BP 123/87
--- NOTE | 2020-08-03 18:59 | EKG REPORT ---
SEVERITY:- ABNORMAL ECG - SINUS TACHYCARDIA BORDERLINE LEFT AXIS DEVIATION NONSPECIFIC T ABNORMALITIES, LATERAL LEADS : Confirmed by: Mumtaz Arambula MD 03-Aug-2020 18:58:16
== END 2020-08-03 13:27 | disposition home or self-care (01) ==
LOC: ER 10:20
DX: R00.0 Tachycardia, unspecified (principal); R11.0 Nausea; R07.89 Other chest pain; R42 Dizziness and giddiness; R06.02 Shortness of breath; R07.9 Chest pain, unspecified; I10 Essential (primary) hypertension; Z90.710 Acquired absence of both cervix and uterus
CPT/HCPCS: 36415; 71045; 80053; 83880; 84484; 85025; 93005; 93010; 99285